=== PATIENT | female | born 1940 | race African-American/Black ===

== ENCOUNTER 2018-04-05 20:22 | Inpatient (IN) | payer MEDICARE ==
[~2018-04-05 20:22] MED LIST: ISOVUE-370 76%-LOCM 1 ML ONE
[2018-04-05 20:38] LABS: Analyzer IN Cardio ER; Base Excess (BEa) 8.5 mEq/L (-2.0 to +3.0); Calcium, Ionized 1.25 mmol/L (1.12-1.30); Carboxyhemoglobin (COHb) 1.6 gm% (0.0-3.0); Hemoglobin (Hb) 16.3 g/dL (12.0-16.0); O2 Tension (PaO2) 84.6 mmHg (> 70.0); Potassium - ABG Lab 3.63 mmol/L (3.70-5.30)
[2018-04-05] MEDS ORDERED: KETAMINE 100 MG/ML (5ML VIAL) ONE (20:43)
[2018-04-05] MEDS ORDERED: Sodium Bicarb 50 MEQ/50 ML Abboject 8.4% SYRINGE ONE (20:44)
[2018-04-05 21:03] LABS: CO2 Tension 146.5 mmHg (35.0-45.0); Puncture Site RRA; pH, Arterial 7.11 (7.35-7.45)
[2018-04-05 21:04] LABS: ALV-art Gradient 445.275 (0-20)
--- NOTE | 2018-04-05 21:20 | RAD ---
PORTABLE SUPINE CHEST: 04/05/18 HISTORY: Post intubation. Heart size is enlarged with postop sternotomy change. Left lung is now much better aerated than the p rior examination suggesting changes were probably related to mucus plugging. Endotracheal tube is in satisfactory position. Persistent bibasilar lung changes are probably related to atelectasis. IMPRESSION: 1. Definite improvement to the aeration of the left lung. 2. Endotracheal tube in satisfactory position. POS: [facility]
[2018-04-05] MEDS ORDERED: Propofol 1,000 MG/100 ML VIAL IV ONE (21:59)
[2018-04-05] MEDS ORDERED: Acetaminophen 325 MG TAB PO PRN (22:16)
[2018-04-05] MEDS ORDERED: Lactated Ringer's 1,000 ML IV SCH (22:30)
[2018-04-05 22:43] LABS: Analyzer IN Cardio ER; Base Excess (BEa) 8.8 mEq/L (-2.0 to +3.0); CO2 Tension 31.2 mmHg (35.0-45.0); Calcium, Ionized 1.15 mmol/L (1.12-1.30); Carboxyhemoglobin (COHb) 1.4 gm% (0.0-3.0); Hemoglobin (Hb) 16.3 g/dL (12.0-16.0)
[2018-04-05 22:47] LABS: O2 Tension (PaO2) 44.3 mmHg (> 70.0)
[2018-04-05 22:48] LABS: Puncture Site RRA
[2018-04-05] MEDS ORDERED: Lorazepam 2 MG/ML VIAL SLOW IVP PRN (23:36)
[2018-04-05] MEDS ORDERED: Fentanyl BOLUS 250 ML IVPB PRN (23:36)
[2018-04-05] MEDS ORDERED: Morphine 2 MG/ML SYRINGE SLOW IVP PRN (23:36)
[2018-04-05] MEDS ORDERED: Propofol BOLUS 1,000 MG/100 ML VIAL IV PRN (23:36)
--- NOTE | 2018-04-05 23:42 | CT ---
CT ANGIO OF CHEST PERFORMED WITH INTRAVENOUS CONTRAST ENHANCEMENT WITH 3D RECONSTRUCTIONS: 04/05/18 HISTORY: Shortness of breath, respiratory distress. There is right lower lobe atelectatic change present. On the left side, there is more extensive conso lidation in the left upper and lower lung gonzalez. No air bronchograms seen. I do not see any definite endobronchial mass. Changes have more of an appearance of a atelectatic process than pneumonia or tu mor. I do not appreciate any significant mediastinal or hilar adenopathy. The thoracic aorta is zacarias l in caliber. There is good pulmonary artery opacification, there is no CT evidence for pulmonary emb olus. The visualized liver parenchyma shows no focal findings. An NG tube is present. The tip of the tube is at the GE junction. An endotracheal tube is in satisfactory position. IMPRESSION: 1. No CT evidence for pulmonary embolus. 2. Opacification which appears to be related to consolidation or collapse in the left upper and left lower lung gonzalez. POS: [facility]
[2018-04-06 00:38] LABS: Actual Bicarbonate (HCO3a) 31.6 mEq/L (22-28); Base Excess (BEa) 6.9 mEq/L (-2.0 to +3.0); CO2 Tension 44.4 mmHg (35.0-45.0); Calcium, Ionized 1.19 mmol/L (1.12-1.30); Carboxyhemoglobin (COHb) 1.3 gm% (0.0-3.0); Hemoglobin (Hb) 15.8 g/dL (12.0-16.0); Potassium - ABG Lab 3.27 mmol/L (3.70-5.30); pH, Arterial 7.47 (7.35-7.45)
[2018-04-06 00:40] LABS: O2 Tension (PaO2) 58.4 mmHg (> 70.0)
[2018-04-06 00:41] LABS: Puncture Site RBRACH
[2018-04-06] MEDS: Propofol 1,000 MG/100 ML VIAL IV PRN ×4 (01:09→19:49)
--- NOTE | 2018-04-06 04:07 | HP ---
CHIEF COMPLAINT: Shortness of breath. The patient currently is intubated. I am unable to obtain a history and there is no family member around. All of the history is obtained from the ER doc and from documentation. HISTORY OF PRESENT ILLNESS: Apparently, the patient is a 78-year-old female who initially presented to the outside hospital in [facility] for complaints of shortness of breath. The patient stated that she has been having some chest congestion for the past 10 days. The patient's shortness of breath has been getting worse for the past few days, and at this time when she came into the hospital, her O2 saturations were 60% on room air. At this time, she was put on BiPAP and was transferred here for further evaluation. When the patient has arrived here, she appeared to be more somnolent. At this time, an ABG was done, which indicated a pH of 7.1. At this time, she was intubated. PAST MEDICAL HISTORY: Unable to obtain. No family members. SURGICAL HISTORY: Unable to obtain. No family members. SOCIAL HISTORY: Again, unavailable. MEDICATIONS: She did not have a list. ALLERGIES: PER NOTES INDICATES NO KNOWN DRUG ALLERGIES. REVIEW OF SYSTEMS: Unable to examine since the patient currently is intubated. PHYSICAL EXAMINATION: VITAL SIGNS: Temperature of 98.8, respirations are 18, blood pressure 140/60, she is saturating 90% on 90% FiO2. GENERAL: She is intubated. CV: S1 and S2 present. No murmurs, rubs, or gallops. LUNGS: Clear to auscultation. No rhonchi or wheezes noted. ABDOMEN: Soft and nontender. Bowel sounds are present x2. No hepatomegaly or splenomegaly noted. EXTREMITIES: No edema. Pedal pulses are present x2. NEUROVASCULAR: Per nursing staff, she was moving all her extremities. SKIN: No cuts, lesions, or bruises noted. HEENT: Normocephalic, atraumatic. No lymphadenopathy noted. LABORATORY RESULTS: As of the following; WBC of 6.6, hemoglobin of 15.8, hematocrit of 53.0, platelets of 350. Chemistry; sodium of 131, potassium of 3.8, BUN of 9, creatinine 0.67, glucose of 151. Troponin x1 is negative. BNP was 157. She did initially have a chest x-ray which indicated significant opacification of the left lung. At this time, she also had a CTA which indicated no pulmonary embolism, but opacification which appears to be related to consolidation or collapse of the left upper and left lower lung gonzalez. Animal Assisted Therapist has been notified about this per the ER doctor. ASSESSMENT AND PLAN: The patient is a very pleasant 78-year-old female who presents to the hospital with complaints of shortness of breath. 1. Acute hypercapnic/hypoxic respiratory failure. The patient currently is intubated. Her initial ABG indicated a pH of 7.11. Her repeat was 7.60. However, her pO2 was 43. At this time, settings were changed. Her FiO2 was increased and so was her PEEP. Her repeat 1 about an hour and half of pH was 7.47, pCO2 of 44.4, and pO2 of 58.4. We will start the patient on community-acquired pneumonia and we will start on Levaquin for now. She did receive vancomycin, Zosyn, and Levaquin, and also check for viral swabs. Also check a sputum for culture. She may require a bronchoscopy. An blocker heated metal forms has been notified by the ER physician. We will also start her on some steroids and some DuoNeb. 2. Mild hyponatremia. We will continue to monitor. Her antibiotics will also cover if she does have any possibility of Legionella, it will also cover that. 3. Obesity. 4. Mildly elevated BNP, may consider getting an echocardiogram. However, at this time, I think we will hold off. 5. Deep venous thrombosis prophylaxis. We will put the patient on some subcu heparin. Job ID: [id number]
[2018-04-06 05:20] LABS: Anion Gap 12 mmol/L (10-20); BUN (Urea Nitrogen) 8 mg/dL (9.8-20.1); Calc. Creatinine Clearance 151 mL/min (70-130); Calcium 9.4 mg/dL (7.8-10.44); Carbon Dioxide 34 mmol/L (23-31); Chloride 93 mmol/L (98-107); Estimated GFR-MDRD Greater than 90; Glucose 119 mg/dL (83-110); Potassium 3.2 mmol/L (3.5-5.1); Sodium 136 mmol/L (136-145)
[2018-04-06] MEDS ORDERED: Potassium Chloride 10 MEQ in Premix Bag 1 BAG IVPB SCH (06:00)
[2018-04-06 06:17] LABS: Band 7 % (5-11); Hemoglobin 15.1 g/dL (12.0-16.0); Lymphocytes 11 % (21-51); MDiff Complete? YES; Mean Corpuscular HGB CONC 31.4 g/dL (32.0-36.0); Mean Corpuscular Hemoglobin 30.5 pg (27.0-31.0); Mean Corpuscular Volume 97.4 fL (78.0-98.0); Mean Platelet Volume 7.6 fL (7.4-10.4); Monocytes 4 % (0-10); Neutrophil 78 % (42-75); PLT Morphology Comment Appears Adequate; Platelet Count 302 thou/uL (130-400); Polychromasia SLIGHT = 2-3 cells (100X) (0-2/hpf); RBC Distribution Width 14.4 % (11.5-14.5); Red Blood Cell (RBC) Count 4.94 mill/uL (4.20-5.40); White Blood Cell (WBC) Count 5.7 thou/uL (4.8-10.8)
[2018-04-06 06:56] LABS: Troponin I Less than 0.010 ng/mL (< 0.028)
[2018-04-06 08:13] LABS: Actual Bicarbonate (HCO3a) 33.3 mEq/L (22-28); Base Excess (BEa) 10.2 mEq/L (-2.0 to +3.0); CO2 Tension 38.9 mmHg (35.0-45.0); Calcium, Ionized 1.22 mmol/L (1.12-1.30); Hemoglobin (Hb) 15.8 g/dL (12.0-16.0); O2 Tension (PaO2) 80.9 mmHg (> 70.0); Potassium - ABG Lab 3.21 mmol/L (3.70-5.30); Puncture Site RBA; pH, Arterial 7.55 (7.35-7.45)
[2018-04-06 08:14] LABS: ALV-art Gradient 512.175 (0-20)
[2018-04-06] MEDS ORDERED: Midazolam HCl 2 mg/2 ml Vial ONE (08:27)
[2018-04-06] MEDS: Cefepime 1 GM in Sodium Chloride 0.9% 100 ML IVPB SCH ×2 (08:43→21:42)
[2018-04-06] MEDS: Enoxaparin Sodium 40 MG/0.4 ML SYRINGE SC SCH (08:43)
[2018-04-06] MEDS: Sodium Chloride 0.9% 1,000 ML IV SCH ×2 (08:43→19:49)
--- NOTE | 2018-04-06 10:37 | RAD ---
PORTABLE SEMIUPRIGHT FRONTAL CHEST RADIOGRAPH: Date: 04/06/18 COMPARISON: 04/05/18. HISTORY: Ventilated patient. FINDINGS: Endotracheal tube terminates at the level of the clavicles. Nasogastric tube extends into left upper quadrant. There is a dense opacity in the left base suggesting left lower lobe consolidation/collapse and/or left pleural effusion, unchanged when compared to the prior exam. There is mild increased den sity in the medial right lung base which may signify volume loss or infiltrate. IMPRESSION: Lines and tubes as above. Bibasilar opacity, left greater than right, as above. POS: [facility]
--- NOTE | 2018-04-06 11:09 | CON ---
DATE OF CONSULTATION: HISTORY OF PRESENT ILLNESS: A 78-year-old morbidly obese female, who apparently presented to an outside ER in acute respiratory distress. from spoke to him on the phone. He is on the way to the hospital. The patient was intubated in the ER. The ER physician notified me, the entire left lung was opacified for intubation. There was much more aeration of the left lung, but still appear atelectatic. states the patient does not smoke. No prior history of TB, pneumonia, or bronchial asthma. She has been a housewife. PAST MEDICAL HISTORY: Hypertension, high cholesterol, breast cancer. PAST SURGERIES: Apparently unknown, but some kind of breast surgery. She saw a doctor at the [facility] for treatment for her breast cancer. At this stage, unable to tell what was exactly transpired, but breast cancer in remission 20 years ago. HOME MEDICATIONS: 1. Coreg 12.5 twice a day. 2. Amlodipine 10. 3. Metformin 500 twice a day. 4. Accupril 20 once a day. 5. Naprosyn. 6. Cholesterol. 7. Arimidex 1 mg a day. ALLERGIES: NONE. REVIEW OF SYSTEMS: Otherwise unobtainable. PHYSICAL EXAMINATION: GENERAL: She is intubated on the vent. VITAL SIGNS: Pulse is 68, blood pressure 137/73, saturation 99%, respirations 19. CHEST: Decreased breath sounds. Extensive rhonchi left greater than right. CARDIAC: Normal S1, S2. No gallops. ABDOMEN: No masses. LABORATORY STUDIES: White count 5000, H and H is 15 and 48, platelet count is normal. PO2 was 80, pCO2 . Lytes were normal. Blood sugar was elevated. Bicarb was 34. Initial lab, blood gases showed pO2 was 84, pCO2 146, pH 7.11. Chest x-ray, left lung atelectasis. CAT scan confirmed the above findings. IMPRESSION: 1. Acute on chronic respiratory failure, marked respiratory acidosis. 2. Left lung atelectasis, pneumonia. 3. Breast cancer. 4. Diabetes. 5. Hypertension. PLAN: Diagnostic therapeutic bronchoscopy performed. Lung is still atelectatic. I discussed with the . In the meantime, continue antibiotics, neb treatment, supportive care. DVT prophylaxis. This is a 45-minute critical time excluding with bronchoscopy note below. BRONCHOSCOPY NOTE: INDICATIONS: Left lung atelectasis. DESCRIPTION OF PROCEDURE: Informed consent from the . Bite block in place. Versed 2 mg adapted on the endotracheal tube. Distal trachea showed complete obstruction of the left mainstem bronchus. This was suction lavaged numerous times for at least 15 minutes. All segments upper and lower lobe were visualized. Extensive pus was seen, which was suctioned otherwise until completely clear. After the entire left lung inspected, upper and lower lobe, no endobronchial obstruction was seen. The lateral aspect is unremarkable. Both lungs clear. IMPRESSION: Extensive left lung mucopurulent impaction. Washings were sent for Gram stain and C and S. The patient tolerated the procedure well. Job ID: [id number]
[2018-04-06] MEDS: fentaNYL Citrate/PF 2,000 MCG in Sodium Chloride 0.9% 60 ML IV SCH ×2 (11:30→21:35)
--- NOTE | 2018-04-06 13:49 | PDOC.EVN ---
Event Note - Event Note Event Note: Admitted for respiratory failure, patient now S/P Bronchoscopy that showed large mucopurulent secreations that was suctioned out. Continue intubation, nebs , IV abx. Pending cx results from bronch. Please see H and P by Dr. Haney
[2018-04-07] MEDS: Propofol 1,000 MG/100 ML VIAL IV PRN ×6 (00:04→23:09)
[2018-04-07] MEDS: Sodium Chloride 0.9% 1,000 ML IV SCH ×3 (05:11→14:08)
[2018-04-07 05:27] LABS: #Lymphocytes 0.4 thou/uL (1.20-3.40); #Monocytes 0.6 thou/uL (0.11-0.59); #Neutrophils 8.4 thou/uL (1.40-6.50); %Eosinophils 0.2 % (0.0-10.0); %Lymphocytes 4.5 % (21.0-51.0); %Monocytes 6.7 % (0.0-10.0); %Neutrophils 88.6 % (42.0-75.0); Hemoglobin 14.6 g/dL (12.0-16.0); Mean Corpuscular HGB CONC 30.6 g/dL (32.0-36.0); Mean Corpuscular Hemoglobin 29.7 pg (27.0-31.0); Mean Corpuscular Volume 97.1 fL (78.0-98.0); Mean Platelet Volume 7.8 fL (7.4-10.4); Platelet Count 324 thou/uL (130-400); RBC Distribution Width 14.6 % (11.5-14.5); Red Blood Cell (RBC) Count 4.92 mill/uL (4.20-5.40); White Blood Cell (WBC) Count 9.4 thou/uL (4.8-10.8)
[2018-04-07 05:37] LABS: Anion Gap 13 mmol/L (10-20); BUN (Urea Nitrogen) 7 mg/dL (9.8-20.1); Calc. Creatinine Clearance 156 mL/min (70-130); Calcium 9.5 mg/dL (7.8-10.44); Carbon Dioxide 32 mmol/L (23-31); Chloride 102 mmol/L (98-107); Estimated GFR-MDRD Greater than 90; Glucose 125 mg/dL (83-110); Potassium 3.2 mmol/L (3.5-5.1); Sodium 144 mmol/L (136-145)
[2018-04-07 07:24] LABS: Actual Bicarbonate (HCO3a) 33.3 mEq/L (22-28); Base Excess (BEa) 7.3 mEq/L (-2.0 to +3.0); CO2 Tension 51.8 mmHg (35.0-45.0); Calcium, Ionized 1.24 mmol/L (1.12-1.30); Carboxyhemoglobin (COHb) 1.2 gm% (0.0-3.0); Hemoglobin (Hb) 15.6 g/dL (12.0-16.0); O2 Tension (PaO2) 86.1 mmHg (> 70.0); pH, Arterial 7.43 (7.35-7.45)
[2018-04-07 07:26] LABS: Puncture Site RRA
[2018-04-07] MEDS: Cefepime 1 GM in Sodium Chloride 0.9% 100 ML IVPB SCH ×2 (08:47→20:35)
[2018-04-07] MEDS: fentaNYL Citrate/PF 2,000 MCG in Sodium Chloride 0.9% 60 ML IV SCH ×2 (08:47→17:41)
[2018-04-07] MEDS: Enoxaparin Sodium 40 MG/0.4 ML SYRINGE SC SCH (08:47)
--- NOTE | 2018-04-07 09:40 | RAD ---
SEMIUPRIGHT FRONTAL CHEST RADIOGRAPH: Date: 04/07/18 COMPARISON: 04/06/18. HISTORY: Ventilated patient. FINDINGS: Stable endotracheal tube, nasogastric tube, and midline sternotomy wires. Right lung appears clear. T here is dense opacity in the left base suggesting left lower lobe consolidation/collapse, and/or left pleural effusion, stable. IMPRESSION: No significant interval change. POS: [facility]
--- NOTE | 2018-04-07 12:22 | PDOC.PN ---
- Subjective Encounter Start Date: 04/07/18 Encounter Start Time: 12:21 Subjective: Intubated - Objective Resuscitation Status - Order Detail: 04/05/18 22:16 Resuscitation Status Routine Resuscitation Status: FULL: Full Resuscitation MAR Reviewed: Yes Vital Signs & Weight: Vital Signs (12 hours) Temp Pulse Resp Pulse Ox 04/07/18 10:38 56 L 04/07/18 10:00 10 L 04/07/18 08:00 97.9 F 10 L 100 04/07/18 07:15 58 L 04/07/18 06:00 10 L 04/07/18 04:00 98.1 F 10 L 04/07/18 02:06 57 L 04/07/18 02:05 58 L 10 L 100 04/07/18 02:00 10 L Weight Admit Weight 271 lb Weight 271 lb 13.279 oz Most Recent Monitor Data Heart Rate from ECG 57 NIBP 148/65 NIBP BP-Mean 92 Respiration from ECG 10 SpO2 98 I&O: 04/06/18 04/07/18 04/08/18 06:59 06:59 06:59 Intake Total 743 2737 Output Total 1075 3015 155 Balance -332 -278 -155 Result Diagrams: 04/07/18 03:45 04/07/18 03:45 Phys Exam - Physical Examination Intubated and sedated Respiratory: no wheezing, no rales intubated Cardiovascular: RRR, no significant murmur Gastrointestinal: soft, non-tender, no distention Musculoskeletal: no edema, edema present sedtaed Dx/Plan (1) Acute respiratory failure Code(s): J96.00 - ACUTE RESPIRATORY FAILURE, UNSP W HYPOXIA OR HYPERCAPNIA Status: Acute Qualifiers: Respiratory failure complication: hypoxia and hypercapnia Qualified Code(s) : J96.01 - Acute respiratory failure with hypoxia; J96.02 - Acute respiratory failure with hypercapnia (2) Pleural effusion Code(s): J90 - PLEURAL EFFUSION, NOT ELSEWHERE CLASSIFIED Status: Acute Comment: see above (3) Consolidation of left lower lobe of lung Code(s): J18.1 - LOBAR PNEUMONIA, UNSPECIFIED ORGANISM Status: Acute Comment : see above (4) Hypertension Code(s): I10 - ESSENTIAL (PRIMARY) HYPERTENSION Status: Acute Qualifiers: Hypertension type: essential hypertension Qualified Code(s): I10 - Essential (primary) hypertension Comment: trend BP and meds as required - Plan cont current plan of care, DVT proph w/lovenox, DVT proph w/SCDs * .
--- NOTE | 2018-04-07 12:56 | PRG ---
DATE OF SERVICE: 04/07/2018 SERVICE: Pulmonary Medicine. INTERVAL HISTORY: The patient is doing okay from respiratory standpoint. Whenever she gets a sedation holiday, she wakes up very agitated, climbs down the tube, and then desaturates. Every time, we try to minimize the sedation to see if she will tolerate a spontaneous breathing trial, she wakes up so abruptly that we cannot get her on a CPAP trial. Otherwise, there has been no interval change to her condition. PHYSICAL EXAMINATION: VITAL SIGNS: Afebrile, pulse 56, blood pressure 148/65, respirations 10, and saturation 98% on 31% FiO2 and a PEEP of 5. GENERAL: The patient is intubated and sedated. HEENT: Normocephalic and atraumatic. Sclerae white. Conjunctivae pink. Oral mucosa is moist without lesions. LUNGS: Excellent air entry. Rhonchi are present. No prolonged expiratory phase or wheezing is appreciated. HEART: Normal rate and regular. ABDOMEN: Soft, nontender, and nondistended. Bowel sounds are positive. MUSCULOSKELETAL: No cyanosis or clubbing. There is no pitting in the bilateral lower extremities. NEUROLOGIC: Grossly nonfocal. LABORATORY DATA: WBC 9.4, hemoglobin 14.6, platelets 324,000. PH 7.43, pCO2 of 52, pO2 of 86. Basic metabolic profile is otherwise unremarkable. Sodium 144, potassium 3.2. Basic metabolic profile is otherwise unremarkable. Influenza A and B are unremarkable. Respiratory virus panel is negative. Respiratory culture demonstrates moderate white blood cells, but no organisms with normal maude present ultimately. IMAGIN. Chest x-ray today demonstrates left-sided pleural-parenchymal opacification is noted, I cannot exclude a left-sided effusion. Endotracheal tube terminates in good position, roughly 3 cm above the level of the keegan. There is an enteric catheter coursing midline below the level of the diaphragm and out of the field of view. 2. CTA of the chest demonstrates densely consolidated left lung including segments of the left lower lobe and left upper lobe. The right lung is relatively spared. ASSESSMENT: 1. Acute hypoxic respiratory failure. 2. Community-acquired pneumonia. 3. Breast cancer. DISCUSSION AND PLAN: We will initiate Klonopin and Seroquel overnight. We will repeat a sedation holiday, spontaneous breathing trial tomorrow morning. At this point, her mentation precludes a spontaneous breathing trial to assess whether or not her lungs are ready for extubation. Pulmonary Critical Care will continue to follow while the patient remains in this location. I will replace her potassium today, and minimize her IV fluids. Critical care time: 30 minutes. Job ID: [id number] MTDD
[2018-04-07] MEDS: clonazePAM 1 MG TAB PO SCH (20:35)
[2018-04-08] MEDS: Sodium Chloride 0.9% 1,000 ML IV SCH ×2 (02:27→18:25)
[2018-04-08] MEDS: Propofol 1,000 MG/100 ML VIAL IV PRN ×3 (03:36→23:03)
[2018-04-08] MEDS: fentaNYL Citrate/PF 2,000 MCG in Sodium Chloride 0.9% 60 ML IV SCH ×2 (03:38→16:20)
[2018-04-08 06:23] LABS: Anion Gap 11 mmol/L (10-20); BUN (Urea Nitrogen) 7 mg/dL (9.8-20.1); Calc. Creatinine Clearance 172 mL/min (70-130); Calcium 9.1 mg/dL (7.8-10.44); Carbon Dioxide 30 mmol/L (23-31); Chloride 106 mmol/L (98-107); Estimated GFR-MDRD Greater than 90; Glucose 108 mg/dL (83-110); Potassium 3.7 mmol/L (3.5-5.1); Sodium 143 mmol/L (136-145)
[2018-04-08 06:34] LABS: #Lymphocytes 0.8 thou/uL (1.20-3.40); %Basophils 0.1 % (0.0-1.0); %Lymphocytes 10.6 % (21.0-51.0); %Monocytes 13.1 % (0.0-10.0); %Neutrophils 76.2 % (42.0-75.0); Anisocytosis SLIGHT = 6-15 cells (100X) (0-5/hpf); Hemoglobin 14.7 g/dL (12.0-16.0); MDiff Complete? YES; Mean Corpuscular Hemoglobin 30.4 pg (27.0-31.0); Mean Platelet Volume 7.4 fL (7.4-10.4); Platelet Count 325 thou/uL (130-400); RBC Distribution Width 14.7 % (11.5-14.5); Red Blood Cell (RBC) Count 4.86 mill/uL (4.20-5.40); White Blood Cell (WBC) Count 7.8 thou/uL (4.8-10.8)
[2018-04-08 07:10] LABS: Actual Bicarbonate (HCO3a) 26.6 mEq/L (22-28); Base Excess (BEa) 1.7 mEq/L (-2.0 to +3.0); Calcium, Ionized 1.28 mmol/L (1.12-1.30); Carboxyhemoglobin (COHb) 1.5 gm% (0.0-3.0); Hemoglobin (Hb) 15.6 g/dL (12.0-16.0); O2 Tension (PaO2) 63.8 mmHg (> 70.0); Potassium - ABG Lab 3.78 mmol/L (3.70-5.30); pH, Arterial 7.41 (7.35-7.45)
[2018-04-08 07:11] LABS: Puncture Site RRA
[2018-04-08] MEDS: Cefepime 1 GM in Sodium Chloride 0.9% 100 ML IVPB SCH ×2 (08:04→21:26)
[2018-04-08] MEDS: Enoxaparin Sodium 40 MG/0.4 ML SYRINGE SC SCH (08:05)
[2018-04-08] MEDS: clonazePAM 1 MG TAB PO SCH ×2 (08:05→21:29)
--- NOTE | 2018-04-08 08:18 | RAD ---
PORTABLE CHEST 1 VIEW: Date: 04/08/18 Time: 0537 hours HISTORY: Respiratory failure. FINDINGS/IMPRESSION: There has been interval development of mild infiltrate at the right lung base since the previous day' s exam. The remainder of exam is otherwise stable. POS: [facility]
[2018-04-08] MEDS ORDERED: Pancrelipase DR 12000 1 CAP FS PRN (10:57)
[2018-04-08] MEDS ORDERED: Sodium Bicarbonate Tab 325 MG TAB PER TUBE PRN (10:57)
--- NOTE | 2018-04-08 11:38 | PDOC.PN ---
- Subjective Encounter Start Date: 04/08/18 Encounter Start Time: 11:35 Subjective: intubated, sedated - Objective Resuscitation Status - Order Detail: 04/05/18 22:16 Resuscitation Status Routine Resuscitation Status: FULL: Full Resuscitation MAR Reviewed: Yes Vital Signs & Weight: Vital Signs (12 hours) Temp Pulse Resp BP Pulse Ox 04/08/18 10:06 52 L 147/74 H 04/08/18 10:05 52 L 10 L 98 04/08/18 10:00 10 L 04/08/18 08:00 98.5 F 10 L 97 04/08/18 06:51 53 L 10 L 94 L 04/08/18 06:50 53 L 140/70 04/08/18 06:00 10 L 04/08/18 04:00 10 L 04/08/18 03:00 98.5 F 04/08/18 02:27 52 L 138/63 04/08/18 02:00 10 L 04/08/18 00:00 10 L Weight Admit Weight 271 lb Weight 273 lb 13.026 oz Most Recent Monitor Data Heart Rate from ECG 55 NIBP 147/74 NIBP BP-Mean 98 Respiration from ECG 6 SpO2 98 I&O: 04/07/18 04/08/18 04/09/18 06:59 06:59 06:59 Intake Total 2737 2821.5 Output Total 3015 1550 85 Balance -278 1271.5 -85 Result Diagrams: 04/08/18 05:39 04/08/18 05:39 Phys Exam - Physical Examination HEENT: PERRLA, moist MMs, sclera anicteric, TM's clear, oral pharynx no lesions , 2+ tonsils + Intubation Neck: no nodes, no JVD, supple, full ROM Respiratory: no wheezing, no rales +intubation Cardiovascular: RRR, no significant murmur Gastrointestinal: soft, non-tender, no distention Musculoskeletal: edema present sedated Dx/Plan (1) Acute respiratory failure Code(s): J96.00 - ACUTE RESPIRATORY FAILURE, UNSP W HYPOXIA OR HYPERCAPNIA Status: Acute Qualifiers: Respiratory failure complication: hypoxia and hypercapnia Qualified Code(s) : J96.01 - Acute respiratory failure with hypoxia; J96.02 - Acute respiratory failure with hypercapnia (2) Pleural effusion Code(s): J90 - PLEURAL EFFUSION, NOT ELSEWHERE CLASSIFIED Status: Acute Comment: see above (3) Consolidation of left lower lobe of lung Code(s): J18.1 - LOBAR PNEUMONIA, UNSPECIFIED ORGANISM Status: Acute Comment : see above (4) Hypertension Code(s): I10 - ESSENTIAL (PRIMARY) HYPERTENSION Status: Acute Qualifiers: Hypertension type: essential hypertension Qualified Code(s): I10 - Essential (primary) hypertension Comment: trend BP and meds as required - Plan cont current plan of care, continue antibiotics, respiratory therapy, DVT proph w/lovenox, DVT proph w/SCDs * .
--- NOTE | 2018-04-08 17:26 | PRG ---
DATE OF SERVICE: 04/08/2018 OBJECTIVE: VITAL SIGNS: Ms. Varma'opal heart rate 54, blood pressure 146/74, respiratory rate 10, oximetry is 100% mechanically ventilated. LUNGS: Clear. HEART: Regular rhythm. S1 and S2 are normal. ABDOMEN: Soft without guarding. EXTREMITIES: Without edema. LABORATORY STUDIES: 1. White count 7.8, hemoglobin 14.7, platelets 325. Electrolytes are normal. BUN 7, creatinine 0.53. Chest radiograph has been reviewed, still hazy at her left base. CT of her chest was reviewed showing consolidation of both lobes on the left, patchy fashion. 2. No thromboembolic disease was seen. IMPRESSION: 1. Acute respiratory failure. PH today 7.41, CO2 of 43, pO2 of 63. 2. Ventilator settings include rate of 10, FiO2 of 37%, tidal volume of 470, pressure support of 10, 5 of PEEP. 3. We will continue mechanical ventilation. 4. For community-acquired pneumonia with acute hypoxic respiratory failure, other problems include breast cancer. At this point in time, I doubt her pneumonia is secondary to endobronchial metastatic disease, but it remains in the differential. We will continue with supportive care. Job ID: [id number]
[2018-04-09 04:18] LABS: #Eosinphils 0.1 thou/uL (0.0-0.7); #Monocytes 0.8 thou/uL (0.11-0.59); #Neutrophils 4.1 thou/uL (1.40-6.50); %Basophils 0.2 % (0.0-1.0); %Eosinophils 1.1 % (0.0-10.0); %Lymphocytes 16.1 % (21.0-51.0); %Monocytes 13.3 % (0.0-10.0); %Neutrophils 69.4 % (42.0-75.0); Hemoglobin 14.6 g/dL (12.0-16.0); Mean Corpuscular HGB CONC 30.9 g/dL (32.0-36.0); Mean Corpuscular Hemoglobin 30.6 pg (27.0-31.0); Mean Corpuscular Volume 99.2 fL (78.0-98.0); Mean Platelet Volume 7.4 fL (7.4-10.4); Platelet Count 289 thou/uL (130-400); RBC Distribution Width 14.8 % (11.5-14.5); Red Blood Cell (RBC) Count 4.76 mill/uL (4.20-5.40); White Blood Cell (WBC) Count 5.9 thou/uL (4.8-10.8)
[2018-04-09 04:31] LABS: Anion Gap 11 mmol/L (10-20); BUN (Urea Nitrogen) 10 mg/dL (9.8-20.1); Calc. Creatinine Clearance 162 mL/min (70-130); Calcium 9.2 mg/dL (7.8-10.44); Carbon Dioxide 30 mmol/L (23-31); Chloride 107 mmol/L (98-107); Estimated GFR-MDRD Greater than 90; Glucose 103 mg/dL (83-110); Potassium 3.5 mmol/L (3.5-5.1); Sodium 144 mmol/L (136-145)
[2018-04-09] MEDS: Propofol 1,000 MG/100 ML VIAL IV PRN ×3 (04:50→19:48)
[2018-04-09] MEDS: Sodium Chloride 0.9% 1,000 ML IV SCH (04:51)
[2018-04-09 06:58] LABS: Base Excess (BEa) 2.9 mEq/L (-2.0 to +3.0); CO2 Tension 49.8 mmHg (35.0-45.0); Carboxyhemoglobin (COHb) 1.5 gm% (0.0-3.0); Hemoglobin (Hb) 15.3 g/dL (12.0-16.0); O2 Tension (PaO2) 71.4 mmHg (> 70.0); Potassium - ABG Lab 3.65 mmol/L (3.70-5.30); pH, Arterial 7.38 (7.35-7.45)
[2018-04-09 07:12] LABS: Puncture Site LRA
[2018-04-09] MEDS: Cefepime 1 GM in Sodium Chloride 0.9% 100 ML IVPB SCH ×2 (08:32→20:12)
--- NOTE | 2018-04-09 08:34 | RAD ---
CHEST ONE VIEW PORTABLE: History: 78-year-old female with history of respiratory insufficiency. Comparison: 04-08-18 FINDINGS: Monitor leads overlie the chest. NG tube and endotracheal tubes remain in place. There is some cardio megaly with left sided pleural and parenchymal opacity changes in the mid and lower chest and some ri ght lower lobe parenchymal changes along with bilateral vascular congestion. IMPRESSION: Abnormal pleural and parenchymal opacity changes in the left chest with parenchymal changes in the ri ght lower lobe and bilateral vascular congestion showing little change from prior study of 04-08-18 w hich showed definite worsening compared to the 04-07-18 study. Continued short term follow up. POS: [facility]
[2018-04-09] MEDS: clonazePAM 1 MG TAB PO SCH ×2 (08:39→19:55)
[2018-04-09] MEDS: Enoxaparin Sodium 40 MG/0.4 ML SYRINGE SC SCH (08:40)
--- NOTE | 2018-04-09 11:25 | PDOC.PN ---
- Subjective Encounter Start Date: 04/09/18 Encounter Start Time: 11:15 -: non-verbal Subjective: Intubated and sedated - Objective Resuscitation Status - Order Detail: 04/05/18 22:16 Resuscitation Status Routine Resuscitation Status: FULL: Full Resuscitation MAR Reviewed: Yes Vital Signs & Weight: Vital Signs (12 hours) Temp Pulse Resp BP Pulse Ox 04/09/18 10:57 61 112/77 04/09/18 10:55 61 10 L 96 04/09/18 10:00 10 L 04/09/18 08:00 98.2 F 10 L 04/09/18 06:42 59 L 96/55 L 04/09/18 06:39 57 L 10 L 99 04/09/18 06:00 10 L 04/09/18 04:00 98.3 F 12 04/09/18 02:16 68 112/67 04/09/18 02:00 10 L 04/09/18 00:00 98.0 F 10 L Weight Admit Weight 271 lb Weight 281 lb 1.43 oz Most Recent Monitor Data Heart Rate from ECG 61 NIBP 130/62 NIBP BP-Mean 84 Respiration from ECG 10 SpO2 98 I&O: 04/08/18 04/09/18 04/10/18 06:59 06:59 06:59 Intake Total 2821.5 2634 Output Total 1550 1100 185 Balance 1271.5 1534 -185 Result Diagrams: 04/09/18 04:05 04/09/18 04:05 Phys Exam - Physical Examination Constitutional: NAD HEENT: moist MMs pupils sluggish and equal on sedation Coarse breath sounds bilaterally on the vent Cardiovascular: RRR Gastrointestinal: soft, positive bowel sounds Obese Musculoskeletal: no edema Neurological: non-focal Deviation from normal: sedated, unresponsive Dx/Plan (1) Community acquired bacterial pneumonia Code(s): J15.9 - UNSPECIFIED BACTERIAL PNEUMONIA Status: Acute Comment: On vent, IV antibiotics, Left Lower Lung consolidation (2) Acute respiratory failure Code(s): J96.00 - ACUTE RESPIRATORY FAILURE, UNSP W HYPOXIA OR HYPERCAPNIA Status: Acute Qualifiers: Respiratory failure complication: hypoxia and hypercapnia Qualified Code(s) : J96.01 - Acute respiratory failure with hypoxia; J96.02 - Acute respiratory failure with hypercapnia Comment: Requiring intubation. CT chest showing left lower lung consolidation vs. collapse with pleural effusion. S/P Bronch as aspiration of large amount of pus. Cx from the aspirate showing only normal resp maude. Continue abx Cefepime and levaquin (3) Hypertension Code(s): I10 - ESSENTIAL (PRIMARY) HYPERTENSION Status: Acute Qualifiers: Hypertension type: essential hypertension Qualified Code(s): I10 - Essential (primary) hypertension Comment: trend BP and meds as required - Plan cont current plan of care, continue antibiotics, respiratory therapy, DVT proph w/lovenox * . - Discharge Day Encounter end time: 11:25
--- NOTE | 2018-04-09 13:08 | PRG ---
DATE OF SERVICE: 04/09/2018 SERVICE: Pulmonary Medicine. INTERVAL HISTORY: The patient is doing okay from respiratory standpoint. Breathing comfortably. That being said, whenever we minimized the sedation, she wakes up wild, and does not follow any commands. I am not convinced that she will be able to cough all the secretions that she has up and protect her airway. As such, extubation cannot be considered currently. There has been no interval change to her condition, however. PHYSICAL EXAMINATION: VITAL SIGNS: Afebrile, pulse 93, blood pressure 134/69, respirations 14, saturation 92% on 23% FiO2 and a PEEP of 5. GENERAL: The patient is intubated and sedated. HEENT: Normocephalic and atraumatic. Sclerae are white. Conjunctivae are pink. Oral mucosa is moist without lesions. LUNGS: Excellent air entry. Rhonchi are present. No prolonged expiratory phase are noted. HEART: Normal rate and regular. ABDOMEN: Soft, nontender, and nondistended. Bowel sounds are positive. MUSCULOSKELETAL: No cyanosis or clubbing. There is no pitting in the bilateral lower extremities. NEUROLOGIC: Grossly nonfocal. LABORATORY DATA: WBC 5.9, hemoglobin 14.6, and platelets 289,000. PH 7.38, pCO2 50, PO2 71. Basic metabolic profile is essentially unremarkable. Potassium 3.5. Influenza A and B and respiratory virus panel are unremarkable. Respiratory culture has a few normal respiratory maude present. No organisms were otherwise identified. IMAGING DATA: Chest x-ray demonstrates left lung infiltrate. Endotracheal tube remains in good position roughly 4 cm above the level of the keegan. ASSESSMENT: 1. Acute hypoxic respiratory failure, resolving. 2. Community-acquired pneumonia. 3. Metabolic encephalopathy. 4. History of breast cancer. DISCUSSION AND PLAN: We will continue the Seroquel and Klonopin. I will initiate some Precedex to see whether or not we can liberate her from the propofol and fentanyl. Hopefully, once her mentation allows, she will likely be a good candidate for extubation. At this point, I have seen her moving all 4 extremities. She has a vigorous cough, but whenever we weaned the sedation, she simply clamps down the endotracheal tube, and does not following any commands. As such, it is not safe to extubate her at this moment. Potassium will be replaced today, and IV fluids will be interrupted as she is tolerating her tube feeds. Critical care time: 30 minutes. Job ID: [id number] MTDD
[2018-04-10 04:54] LABS: Anion Gap 9 mmol/L (10-20); BUN (Urea Nitrogen) 11 mg/dL (9.8-20.1); Calc. Creatinine Clearance 172 mL/min (70-130); Calcium 9.5 mg/dL (7.8-10.44); Carbon Dioxide 31 mmol/L (23-31); Chloride 105 mmol/L (98-107); Estimated GFR-MDRD Greater than 90; Glucose 126 mg/dL (83-110); Potassium 3.5 mmol/L (3.5-5.1); Sodium 141 mmol/L (136-145)
[2018-04-10] MEDS: Propofol 1,000 MG/100 ML VIAL IV PRN (05:08)
[2018-04-10 05:33] LABS: #Eosinphils 0.1 thou/uL (0.0-0.7); #Monocytes 0.7 thou/uL (0.11-0.59); #Neutrophils 5.2 thou/uL (1.40-6.50); %Basophils 0.2 % (0.0-1.0); %Lymphocytes 13.9 % (21.0-51.0); %Monocytes 10.4 % (0.0-10.0); %Neutrophils 74.5 % (42.0-75.0); Anisocytosis SLIGHT = 6-15 cells (100X) (0-5/hpf); Hemoglobin 14.7 g/dL (12.0-16.0); MDiff Complete? YES; Mean Corpuscular HGB CONC 30.9 g/dL (32.0-36.0); Mean Corpuscular Hemoglobin 30.4 pg (27.0-31.0); Mean Corpuscular Volume 98.6 fL (78.0-98.0); Mean Platelet Volume 7.4 fL (7.4-10.4); Platelet Count 284 thou/uL (130-400); RBC Distribution Width 14.9 % (11.5-14.5); Red Blood Cell (RBC) Count 4.84 mill/uL (4.20-5.40)
[2018-04-10 07:16] LABS: Actual Bicarbonate (HCO3a) 31.4 mEq/L (22-28); Calcium, Ionized 1.26 mmol/L (1.12-1.30); Carboxyhemoglobin (COHb) 1.8 gm% (0.0-3.0); Hemoglobin (Hb) 15.5 g/dL (12.0-16.0); O2 Tension (PaO2) 64.4 mmHg (> 70.0); Potassium - ABG Lab 3.85 mmol/L (3.70-5.30); pH, Arterial 7.39 (7.35-7.45)
[2018-04-10 07:18] LABS: Puncture Site LR
--- NOTE | 2018-04-10 08:39 | PRG ---
DATE OF SERVICE: 04/10/2018 SUBJECTIVE: This morning she is intubated in the vent. She is on Precedex and propofol. Still remains agitated. OBJECTIVE: VITAL SIGNS: Blood pressure is 133/59, sats are 100%, respirations are 18, pulse 67. She is afebrile. All cultures so far negative. CHEST: Decreased breath sounds. Bilateral rhonchi. CARDIAC: Normal S1 and S2. No gallops or masses. LABORATORY DATA: PO2 of 64, pCO2 of 43 ph 7.37. White count 7000, H and H 14 and 47, platelet count normal. IMPRESSION: 1. Left lung pneumonia. 2. Obesity. 3. Severe deconditioning. PLAN: 1. She is clearly not weanable at this stage. I am going to proceed with another bronchoscopy. Continue antibiotics, neb treatments, steroids. 2. We will follow. One-half hour critical time. Job ID: [id number] MTDD
[2018-04-10] MEDS: clonazePAM 1 MG TAB PO SCH ×2 (08:46→20:14)
[2018-04-10] MEDS: Cefepime 1 GM in Sodium Chloride 0.9% 100 ML IVPB SCH ×2 (08:46→20:14)
[2018-04-10] MEDS: Enoxaparin Sodium 40 MG/0.4 ML SYRINGE SC SCH (08:46)
--- NOTE | 2018-04-10 09:05 | PDOC.PN ---
- Subjective Encounter Start Date: 04/10/18 Encounter Start Time: 09:00 -: non-verbal Subjective: Patient still unweanable on the vent - Objective Resuscitation Status - Order Detail: 04/05/18 22:16 Resuscitation Status Routine Resuscitation Status: FULL: Full Resuscitation MAR Reviewed: Yes Vital Signs & Weight: Vital Signs (12 hours) Temp Pulse Resp BP Pulse Ox 04/10/18 06:37 67 123/62 04/10/18 06:32 62 11 L 99 04/10/18 04:00 97.8 F 12 04/10/18 02:11 65 121/68 04/10/18 02:00 12 04/10/18 01:00 97.7 F 100 04/10/18 00:00 10 L 04/09/18 23:54 56 L 165/85 H 04/09/18 22:08 48 L 144/75 H 04/09/18 22:00 97.8 F 10 L Weight Admit Weight 271 lb Weight 274 lb 14.663 oz Most Recent Monitor Data Heart Rate from ECG 61 NIBP 133/59 NIBP BP-Mean 83 Respiration from ECG 15 SpO2 100 I&O: 04/09/18 04/10/18 04/11/18 06:59 06:59 06:59 Intake Total 2634 2051.1 Output Total 1100 1375 Balance 1534 676.1 Result Diagrams: 04/10/18 04:22 04/10/18 04:22 Phys Exam - Physical Examination HEENT: moist MMs Respiratory: no wheezing, no rales, no rhonchi Cardiovascular: RRR Gastrointestinal: soft, non-tender, positive bowel sounds Neurological: non-focal Deviation from normal: sedated and ventilated Dx/Plan (1) Community acquired bacterial pneumonia Code(s): J15.9 - UNSPECIFIED BACTERIAL PNEUMONIA Status: Acute Comment: On vent, IV antibiotics, Left Lower Lung consolidation (2) Acute respiratory failure Code(s): J96.00 - ACUTE RESPIRATORY FAILURE, UNSP W HYPOXIA OR HYPERCAPNIA Status: Acute Qualifiers: Respiratory failure complication: hypoxia and hypercapnia Qualified Code(s) : J96.01 - Acute respiratory failure with hypoxia; J96.02 - Acute respiratory failure with hypercapnia Comment: Requiring intubation. CT chest showing left lower lung consolidation vs. collapse with pleural effusion. S/P Bronch as aspiration of large amount of pus. Cx from the aspirate showing only normal resp maude. Continue abx Cefepime and levaquin (3) Hypertension Code(s): I10 - ESSENTIAL (PRIMARY) HYPERTENSION Status: Acute Qualifiers: Hypertension type: essential hypertension Qualified Code(s): I10 - Essential (primary) hypertension Comment: trend BP and meds as required - Plan cont current plan of care, continue antibiotics, respiratory therapy, DVT proph w/lovenox Adding Reglan and Pepcid. Patient still with high residuals on tube feeds. * . - Discharge Day Encounter end time: 09:15
[2018-04-10] MEDS: Metoclopramide HCl 10 MG/2 ML VIAL IVP SCH ×2 (13:12→21:21)
--- NOTE | 2018-04-10 19:49 | OP ---
DATE OF PROCEDURE: PROCEDURE: Bronchoscopy, therapeutic. INDICATION: Persistent secretion, left lung atelectasis respitory failure DESCRIPTION OF PROCEDURE: After informed consent from the , a flexible bronchoscope was passed _using addapterto endotracheal tube. Distal trachea was visualized, which was normal. Elsy was sharp. The left lung had distal marked edema and secretions with pus in the basilar section, lavaged until clear. No endobronchial disease was seen. The right lung was inspected. The right upper and right middle lobe were unremarkable. No endobronchial obstruction was seen. Both lungs were relavaged with saline till clear. The patient otherwise tolerated the procedure well. Job ID: [id number] [facility]
[2018-04-10] MEDS: Famotidine 20 MG TAB PER TUBE SCH (20:14)
[2018-04-11] MEDS: Metoclopramide HCl 10 MG/2 ML VIAL IVP SCH ×3 (05:02→22:22)
[2018-04-11 05:52] LABS: #Eosinphils 0.1 thou/uL (0.0-0.7); #Lymphocytes 0.7 thou/uL (1.20-3.40); #Monocytes 0.8 thou/uL (0.11-0.59); #Neutrophils 6.8 thou/uL (1.40-6.50); %Basophils 0.2 % (0.0-1.0); %Lymphocytes 8.7 % (21.0-51.0); %Monocytes 9.1 % (0.0-10.0); Hemoglobin 15.7 g/dL (12.0-16.0); Mean Corpuscular HGB CONC 33.2 g/dL (32.0-36.0); Mean Corpuscular Hemoglobin 32.4 pg (27.0-31.0); Mean Corpuscular Volume 97.5 fL (78.0-98.0); Mean Platelet Volume 7.7 fL (7.4-10.4); Platelet Count 284 thou/uL (130-400); RBC Distribution Width 14.4 % (11.5-14.5); Red Blood Cell (RBC) Count 4.86 mill/uL (4.20-5.40); White Blood Cell (WBC) Count 8.4 thou/uL (4.8-10.8)
[2018-04-11 05:57] LABS: Anion Gap 10 mmol/L (10-20); BUN (Urea Nitrogen) 8 mg/dL (9.8-20.1); Calc. Creatinine Clearance 188 mL/min (70-130); Calcium 9.9 mg/dL (7.8-10.44); Carbon Dioxide 33 mmol/L (23-31); Chloride 101 mmol/L (98-107); Estimated GFR-MDRD Greater than 90; Glucose 122 mg/dL (83-110); Potassium 3.9 mmol/L (3.5-5.1); Sodium 140 mmol/L (136-145)
[2018-04-11 06:58] LABS: Actual Bicarbonate (HCO3a) 32.9 mEq/L (22-28); Base Excess (BEa) 5.6 mEq/L (-2.0 to +3.0); CO2 Tension 58.1 mmHg (35.0-45.0); Calcium, Ionized 1.24 mmol/L (1.12-1.30); Carboxyhemoglobin (COHb) 1.9 gm% (0.0-3.0); Hemoglobin (Hb) 16.4 g/dL (12.0-16.0); Potassium - ABG Lab 3.74 mmol/L (3.70-5.30); pH, Arterial 7.37 (7.35-7.45)
[2018-04-11 07:05] LABS: ALV-art Gradient 189.225 (0-20); Puncture Site LRA
[2018-04-11] MEDS ORDERED: DC Sedation Protocol FS ONE (07:35)
[2018-04-11] MEDS: Famotidine 20 MG TAB PER TUBE SCH ×2 (07:49→22:22)
--- NOTE | 2018-04-11 07:54 | PRG ---
DATE OF SERVICE: 04/11/2018 SUBJECTIVE: Katie Varma, this morning awake, alert, and responsive on the vent. OBJECTIVE: VITAL SIGNS: Pulse is 80, blood pressure is 160/80, sats in the 80s. GENERAL: She remains agitated. CHEST: Decreased breath sounds. No wheezing. CARDIAC: Normal S1, S2. No gallops. ABDOMEN: Soft without any masses. NEUROLOGIC: She is awake, moves all of her extremities. LABORATORY DATA: White count is 8000, H and H are 15 and 40, platelet count is normal. PO2 is 59, pCO2 QAMARKER]. This is in the rate of 12. Lytes are normal. IMPRESSION: Respiratory failure, left lung atelectasis, morbid obesity, severe deconditioning, encephalopathy. PLAN: Consider weaning and extubation today. Supportive care, PT, Nutrition. This is one half critical care time. Job ID: [id number]
[2018-04-11] MEDS: Cefepime 1 GM in Sodium Chloride 0.9% 100 ML IVPB SCH ×2 (09:00→21:50)
[2018-04-11] MEDS: clonazePAM 1 MG TAB PO SCH ×2 (09:02→22:21)
[2018-04-11] MEDS: Enoxaparin Sodium 40 MG/0.4 ML SYRINGE SC SCH (09:03)
--- NOTE | 2018-04-11 09:36 | RAD ---
CHEST ONE VIEW: HISTORY: Ventilated patient. COMPARISON: Radiograph from 04/09/2018. FINDINGS: Interval worsening of right basilar air space opacities. Small effusions. Endotracheal tube tip in good position. Enteric tube tip below the diaphragm, although out of the fi eld of view. IMPRESSION: Interval worsening of right lower lobe air space opacities, concerning for infection/aspiration. POS: KEVIN
--- NOTE | 2018-04-11 09:45 | PDOC.PN ---
- Subjective Encounter Start Date: 04/11/18 Encounter Start Time: 09:50 Subjective: Patient extubated, on Bipap, very sleepy right now, nods head yes/ no. - Objective Resuscitation Status - Order Detail: 04/05/18 22:16 Resuscitation Status Routine Resuscitation Status: FULL: Full Resuscitation MAR Reviewed: Yes Vital Signs & Weight: Vital Signs (12 hours) Temp Pulse Resp BP Pulse Ox 04/11/18 08:00 98.5 F 04/11/18 06:28 55 L 171/77 H 04/11/18 06:22 55 L 23 H 97 04/11/18 06:00 23 H 04/11/18 04:00 19 04/11/18 03:00 99.6 F 04/11/18 02:10 54 L 04/11/18 02:00 17 04/11/18 00:25 60 24 H 97 04/11/18 00:00 19 04/10/18 23:00 98.7 F 04/10/18 22:14 52 L 157/69 H 04/10/18 22:00 18 Weight Admit Weight 271 lb Weight 278 lb 0.046 oz Most Recent Monitor Data Heart Rate from ECG 105 NIBP 128/96 NIBP BP-Mean 106 Respiration from ECG 21 SpO2 97 I&O: 04/10/18 04/11/18 04/12/18 06:59 06:59 06:59 Intake Total 2051.1 1501 130 Output Total 1375 1320 420 Balance 676.1 181 -290 Result Diagrams: 04/11/18 05:28 04/11/18 05:28 Phys Exam - Physical Examination Constitutional: NAD HEENT: moist MMs Respiratory: no wheezing, no rales, no rhonchi Cardiovascular: RRR Gastrointestinal: soft, positive bowel sounds Neurological: non-focal Deviation from normal: sleepy Dx/Plan (1) Community acquired bacterial pneumonia Code(s): J15.9 - UNSPECIFIED BACTERIAL PNEUMONIA Status: Acute Comment: On vent, IV antibiotics, Left Lower Lung consolidation (2) Acute respiratory failure Code(s): J96.00 - ACUTE RESPIRATORY FAILURE, UNSP W HYPOXIA OR HYPERCAPNIA Status: Acute Qualifiers: Respiratory failure complication: hypoxia and hypercapnia Qualified Code(s) : J96.01 - Acute respiratory failure with hypoxia; J96.02 - Acute respiratory failure with hypercapnia Comment: Requiring intubation. CT chest showing left lower lung consolidation vs. collapse with pleural effusion. S/P Bronch as aspiration of large amount of pus. Cx from the aspirate showing only normal resp maude. Continue abx Cefepime and levaquin (3) Hypertension Code(s): I10 - ESSENTIAL (PRIMARY) HYPERTENSION Status: Acute Qualifiers: Hypertension type: essential hypertension Qualified Code(s): I10 - Essential (primary) hypertension Comment: trend BP and meds as required - Plan cont current plan of care, continue antibiotics, respiratory therapy Extubated, on Bipap * . - Discharge Day Encounter end time: 10:15
[2018-04-11] MEDS: metFORMIN 500 MG TAB PO SCH (17:41)
[2018-04-11] MEDS ORDERED: Labetalol HCl 100 MG/20 ML VIAL SLOW IVP PRN (21:26)
[2018-04-11] MEDS: Anastrozole 1 MG TAB PO SCH (22:20)
[2018-04-11] MEDS: Carvedilol 6.25 MG TAB PO SCH (22:21)
[2018-04-11] MEDS: Aspirin 81 mg Enteric Coated Tablet PO SCH (22:21)
[2018-04-11] MEDS: Simvastatin 5 MG TAB PO SCH (22:22)
[2018-04-11] MEDS: Docusate 100 MG CAP PO SCH (22:22)
[2018-04-12 05:08] LABS: #Monocytes 1.2 thou/uL (0.11-0.59); #Neutrophils 8.8 thou/uL (1.40-6.50); %Basophils 0.3 % (0.0-1.0); %Eosinophils 0.3 % (0.0-10.0); %Lymphocytes 8.7 % (21.0-51.0); %Monocytes 11.1 % (0.0-10.0); %Neutrophils 79.6 % (42.0-75.0); Hemoglobin 14.9 g/dL (12.0-16.0); Mean Corpuscular HGB CONC 31.1 g/dL (32.0-36.0); Mean Corpuscular Hemoglobin 30.6 pg (27.0-31.0); Mean Corpuscular Volume 98.6 fL (78.0-98.0); Mean Platelet Volume 7.9 fL (7.4-10.4); Platelet Count 338 thou/uL (130-400); RBC Distribution Width 14.8 % (11.5-14.5); Red Blood Cell (RBC) Count 4.86 mill/uL (4.20-5.40)
[2018-04-12 05:33] LABS: Anion Gap 13 mmol/L (10-20); BUN (Urea Nitrogen) 8 mg/dL (9.8-20.1); Calc. Creatinine Clearance 170 mL/min (70-130); Calcium 10.2 mg/dL (7.8-10.44); Carbon Dioxide 34 mmol/L (23-31); Chloride 101 mmol/L (98-107); Estimated GFR-MDRD Greater than 90; Glucose 86 mg/dL (83-110); Potassium 3.6 mmol/L (3.5-5.1); Sodium 144 mmol/L (136-145)
[2018-04-12] MEDS: Metoclopramide HCl 10 MG/2 ML VIAL IVP SCH ×3 (05:39→21:11)
--- NOTE | 2018-04-12 08:11 | PDOC.PN ---
- Subjective Encounter Start Date: 04/12/18 Encounter Start Time: 09:00 Subjective: Patient awake and talking this morning. No pain. Feels like she may need -: to have a BM. No SOB. - Objective Resuscitation Status - Order Detail: 04/05/18 22:16 Resuscitation Status Routine Resuscitation Status: FULL: Full Resuscitation MAR Reviewed: Yes Vital Signs & Weight: Vital Signs (12 hours) Temp Pulse Resp BP Pulse Ox 04/12/18 07:01 95 04/12/18 06:59 102 H 28 H 04/12/18 04:00 98.0 F 04/12/18 00:29 119 H 26 H 98 04/12/18 00:00 98.2 F 04/11/18 22:23 119 H 178/80 H 04/11/18 22:22 171/77 H 04/11/18 22:21 171/77 H Weight Admit Weight 271 lb Weight 276 lb 3.827 oz Most Recent Monitor Data Heart Rate from ECG 100 NIBP 173/106 NIBP BP-Mean 128 Respiration from ECG 18 SpO2 96 I&O: 04/11/18 04/12/18 04/13/18 06:59 06:59 06:59 Intake Total 1501 802 Output Total 1320 4370 Balance 181 -3568 Result Diagrams: 04/12/18 04:20 04/12/18 04:20 Phys Exam - Physical Examination Constitutional: NAD HEENT: moist MMs Respiratory: no wheezing, no rales, no rhonchi Cardiovascular: RRR Gastrointestinal: soft, positive bowel sounds Neurological: non-focal, moves all 4 limbs Psychiatric: normal affect, A&O x 3 Dx/Plan (1) Community acquired bacterial pneumonia Code(s): J15.9 - UNSPECIFIED BACTERIAL PNEUMONIA Status: Acute Comment: IV antibiotics, Left Lower Lung consolidation (2) Acute respiratory failure Code(s): J96.00 - ACUTE RESPIRATORY FAILURE, UNSP W HYPOXIA OR HYPERCAPNIA Status: Acute Qualifiers: Respiratory failure complication: hypoxia and hypercapnia Qualified Code(s) : J96.01 - Acute respiratory failure with hypoxia; J96.02 - Acute respiratory failure with hypercapnia Comment: Requiring intubation. CT chest showing left lower lung consolidation vs. collapse with pleural effusion. S/P Bronch as aspiration of large amount of pus. Cx from the aspirate showing only normal resp maude. Continue abx Cefepime and levaquin. Successfully extubate 04/11 (3) Hypertension Code(s): I10 - ESSENTIAL (PRIMARY) HYPERTENSION Status: Acute Qualifiers: Hypertension type: essential hypertension Qualified Code(s): I10 - Essential (primary) hypertension Comment: trend BP and meds as required - Plan cont current plan of care, continue antibiotics, PT/OT, respiratory therapy * . - Discharge Day Encounter end time: 09:30
[2018-04-12] MEDS: Enoxaparin Sodium 40 MG/0.4 ML SYRINGE SC SCH (08:40)
[2018-04-12] MEDS: Cefepime 1 GM in Sodium Chloride 0.9% 100 ML IVPB SCH ×2 (08:42→20:44)
[2018-04-12] MEDS: Carvedilol 6.25 MG TAB PO SCH ×2 (10:33→20:52)
[2018-04-12] MEDS: Amlodipine 10 MG TAB PO SCH (10:37)
[2018-04-12] MEDS: metFORMIN 500 MG TAB PO SCH ×2 (10:37→16:58)
[2018-04-12] MEDS: Docusate 100 MG CAP PO SCH ×2 (10:38→20:53)
[2018-04-12] MEDS: Famotidine 20 MG TAB PER TUBE SCH ×2 (10:38→20:52)
[2018-04-12] MEDS: clonazePAM 1 MG TAB PO SCH (10:41)
--- NOTE | 2018-04-12 13:09 | PRG ---
DATE OF SERVICE: 04/12/2018 SERVICE: Pulmonary Medicine. INTERVAL HISTORY: The patient is doing fine from a respiratory standpoint. She is on 2 L nasal cannula. She denies any current chest pain, fevers, chills, nausea , or vomiting. Otherwise, she is breathing fairly comfortably with no complaints. There were no significant events overnight. OBJECTIVE: VITAL SIGNS: Afebrile with a T-max of 99.8, pulse 101, blood pressure 142/107, respirations 20, and saturation 90% on 2 L nasal cannula. GENERAL: The patient is awake and alert, in no apparent distress. LUNGS: Decent air entry. Crackles are present dependently. No prolonged expiratory phase or wheezing is appreciated. HEART: Normal rate, regular. ABDOMEN: Soft, nontender, and nondistended. Bowel sounds are positive. MUSCULOSKELETAL: No cyanosis or clubbing. There is trace pitting in bilateral lower extremities. NEUROLOGIC: Grossly nonfocal. ASSESSMENT: 1. Acute hypoxic respiratory failure, resolving. 2. Community-acquired pneumonia. 3. Metabolic encephalopathy, resolved. 4. History of breast cancer. DISCUSSION AND PLAN: I will back off on her sedating medications. Pulmonary/Critical Care will continue to follow along. From my perspective, she can be transitioned out of the ICU to the medical unit. Pulmonary/Critical Care will continue to follow. We will start mobilization efforts through time. Job ID: [id number] MTDD
--- NOTE | 2018-04-12 18:29 | EKG ---
Test Reason : RESPIRATORY DISTRESS Blood Pressure : / mmHG Vent. Rate : 069 BPM Atrial Rate : 069 BPM P-R Int : 162 ms QRS Dur : 096 ms QT Int : 406 ms P-R-T Axes : 057 041 055 degrees QTc Int : 435 ms Normal sinus rhythm Normal ECG Confirmed by MINNA HURLEY DO ([id number]), desk editor CAROLYNE BARRERA ([id number]) on 04/12/2018 6:29:08 PM Referred By: Confirmed By:MINNA HURLEY DO
[2018-04-12] MEDS: Anastrozole 1 MG TAB PO SCH (20:52)
[2018-04-12] MEDS: Aspirin 81 mg Enteric Coated Tablet PO SCH (20:52)
[2018-04-12] MEDS: Simvastatin 5 MG TAB PO SCH (20:53)
[2018-04-13] MEDS: Metoclopramide HCl 10 MG/2 ML VIAL IVP SCH ×3 (05:13→21:04)
[2018-04-13 06:32] LABS: #Eosinphils 0.1 thou/uL (0.0-0.7); #Lymphocytes 1.2 thou/uL (1.20-3.40); #Monocytes 0.9 thou/uL (0.11-0.59); #Neutrophils 5.8 thou/uL (1.40-6.50); %Basophils 0.5 % (0.0-1.0); %Eosinophils 0.8 % (0.0-10.0); %Lymphocytes 14.9 % (21.0-51.0); %Monocytes 11.7 % (0.0-10.0); %Neutrophils 72.2 % (42.0-75.0); Hemoglobin 13.5 g/dL (12.0-16.0); Mean Corpuscular HGB CONC 30.6 g/dL (32.0-36.0); Mean Corpuscular Hemoglobin 30.3 pg (27.0-31.0); Mean Corpuscular Volume 99.2 fL (78.0-98.0); Mean Platelet Volume 7.8 fL (7.4-10.4); Platelet Count 313 thou/uL (130-400); RBC Distribution Width 14.8 % (11.5-14.5); Red Blood Cell (RBC) Count 4.44 mill/uL (4.20-5.40)
[2018-04-13 06:51] LABS: Anion Gap 12 mmol/L (10-20); BUN (Urea Nitrogen) 12 mg/dL (9.8-20.1); Calc. Creatinine Clearance 170 mL/min (70-130); Calcium 10.2 mg/dL (7.8-10.44); Carbon Dioxide 35 mmol/L (23-31); Chloride 101 mmol/L (98-107); Estimated GFR-MDRD Greater than 90; Glucose 97 mg/dL (83-110); Potassium 3.5 mmol/L (3.5-5.1); Sodium 144 mmol/L (136-145)
[2018-04-13] MEDS: Enoxaparin Sodium 40 MG/0.4 ML SYRINGE SC SCH (08:16)
[2018-04-13] MEDS: metFORMIN 500 MG TAB PO SCH ×2 (08:16→17:04)
[2018-04-13] MEDS: Amlodipine 10 MG TAB PO SCH (08:16)
[2018-04-13] MEDS: Cefepime 1 GM in Sodium Chloride 0.9% 100 ML IVPB SCH (08:16)
[2018-04-13] MEDS: Docusate 100 MG CAP PO SCH ×2 (08:17→20:51)
[2018-04-13] MEDS: Carvedilol 6.25 MG TAB PO SCH ×2 (08:17→20:51)
[2018-04-13] MEDS: Famotidine 20 MG TAB PER TUBE SCH ×2 (08:18→20:51)
--- NOTE | 2018-04-13 16:11 | PDOC.PN ---
- Subjective Encounter Start Date: 04/13/18 Encounter Start Time: 16:10 Subjective: f/u for bilat CAP with effusion on current Cefepime/Levaquin s/p extubation -: on 4L/min NC. - Objective Resuscitation Status - Order Detail: 04/05/18 22:16 Resuscitation Status Routine Resuscitation Status: FULL: Full Resuscitation MAR Reviewed: Yes Vital Signs & Weight: Vital Signs (12 hours) Temp Pulse Resp BP BP Pulse Ox Pulse Ox 04/13/18 13:42 91 L 04/13/18 12:56 99.1 F 93 18 143/80 H 94 L 04/13/18 09:33 138/78 04/13/18 09:00 94 L 04/13/18 08:30 99.0 F 93 20 138/78 94 L 04/13/18 08:17 138/78 04/13/18 08:16 93 138/78 Pulse Ox 04/13/18 13:42 96 04/13/18 12:56 04/13/18 09:33 04/13/18 09:00 04/13/18 08:30 04/13/18 08:17 04/13/18 08:16 Weight Admit Weight 271 lb Weight 281 lb 3.687 oz Most Recent Monitor Data Heart Rate from ECG 83 NIBP 123/59 NIBP BP-Mean 80 Respiration from ECG 23 SpO2 96 I&O: 04/12/18 04/13/18 04/14/18 06:59 06:59 06:59 Intake Total 802 1067 Output Total 4370 1590 Balance -0175 -703 Result Diagrams: 04/13/18 05:53 04/13/18 05:53 Additional Labs: Accuchecks 04/13/18 04/12/18 11:14 22:41 POC Glucose 103 93 Microbiology 04/06/18 08:35 Tracheal - Aspirate Respiratory Culture - Final 04/06/18 01:00 Nasopharyngeal swab Influenza Types A & B (NESTOR) - Final 04/06/18 01:00 Nasopharyngeal swab Respiratory Virus Panel (PCR) - Final 04/05/18 19:28 Venous blood - Left Hand Blood Culture - Final NO GROWTH IN 5 DAYS 04/05/18 19:15 Venous blood - Right Arm Blood Culture - Final NO GROWTH IN 5 DAYS Phys Exam - Physical Examination Constitutional: NAD HEENT: PERRLA, sclera anicteric, oral pharynx no lesions Neck: no nodes, no JVD, supple, full ROM coarse sounds bibasilar segments Respiratory: no wheezing S1, S2 Cardiovascular: RRR, no significant murmur, no rub, gallop Gastrointestinal: soft, non-tender, no distention, positive bowel sounds Musculoskeletal: no edema, pulses present Neurological: normal sensation, moves all 4 limbs Psychiatric: A&O x 3 Skin: normal turgor, cap refill <2 seconds Dx/Plan (1) Acute respiratory failure Code(s): J96.00 - ACUTE RESPIRATORY FAILURE, UNSP W HYPOXIA OR HYPERCAPNIA Status: Acute Qualifiers: Respiratory failure complication: hypoxia and hypercapnia Qualified Code(s) : J96.01 - Acute respiratory failure with hypoxia; J96.02 - Acute respiratory failure with hypercapnia Comment: Requiring intubation. CT chest showing left lower lung consolidation vs. collapse with pleural effusion. S/P Bronch as aspiration of large amount of pus. Cx from the aspirate showing only normal resp maude. Continue abx Cefepime and levaquin. Successful extubation 04/11. Continue Cefepime/Levaquin, pulmonary support (2) Community acquired bacterial pneumonia Code(s): J15.9 - UNSPECIFIED BACTERIAL PNEUMONIA Status: Acute Comment: IV antibiotics, Left Lower Lung consolidation, no identified organism, suspected gm + cocci (3) Hypertension Code(s): I10 - ESSENTIAL (PRIMARY) HYPERTENSION Status: Acute Qualifiers: Hypertension type: essential hypertension Qualified Code(s): I10 - Essential (primary) hypertension Comment: trend BP and meds as required (4) Physical deconditioning Code(s): R53.81 - OTHER MALAISE Status: Acute Comment: Suspect multifactorial, PT for mobilization, ? HH with PT - Plan plan discussed w/ family, continue antibiotics, PT/OT, social work professor, respiratory therapy, out of bed/ambulate Stable currently -: Continue Cefepime/Levaquin -: Add Mucinex 600mg BID -: OOB with PT -: AM lab: BMP, CBC * .
--- NOTE | 2018-04-13 18:03 | PRG ---
DATE OF SERVICE: 04/13/2018 SERVICE: Pulmonary Medicine. INTERVAL HISTORY: The patient is doing really well from respiratory standpoint. She is breathing comfortably. She continues to have a cough. She is bringing up a little bit of sputum. She denies any fevers or chills. There were no significant overnight events and she indicates that she is breathing fairly comfortably at this point. OBJECTIVE: VITAL SIGNS: Afebrile with a T-max of 99.8, pulse 93, blood pressure 143/80, respirations 18, and saturation 94% on 4 L nasal cannula. GENERAL: The patient is awake and alert, in no apparent distress. LUNGS: Decent air entry. Crackles are present. No significant rhonchi or wheezing is appreciated. HEART: Normal rate and regular. ABDOMEN: Soft, nontender, and nondistended. Bowel sounds are positive. MUSCULOSKELETAL: No cyanosis or clubbing. No pitting in the bilateral lower extremities. NEUROLOGIC: Grossly nonfocal. LABORATORY DATA: WBC 8.0, hemoglobin 13.5, and platelets 313,000. Basic metabolic profile is essentially unremarkable. ASSESSMENT: 1. Acute hypoxic respiratory failure, resolving. 2. Community-acquired pneumonia. 3. Metabolic encephalopathy, resolved. 4. History of breast cancer. DISCUSSION AND PLAN: We will continue the focusing on mobilization efforts through time. She has completed a 7-day course of antibiotics and these can be discontinued. From a purely respiratory standpoint, she is stable for transition out of the hospital, though she may be best served to recover in a facility where she can get aggressive physical therapy. Pulmonary will continue to follow for now. Job ID: [id number]
[2018-04-13] MEDS: Simvastatin 5 MG TAB PO SCH (20:51)
[2018-04-13] MEDS: guaiFENesin ER 600 MG TAB PO SCH (20:51)
[2018-04-13] MEDS: Aspirin 81 mg Enteric Coated Tablet PO SCH (20:51)
[2018-04-13] MEDS: Anastrozole 1 MG TAB PO SCH (20:57)
[2018-04-14] MEDS: Metoclopramide HCl 10 MG/2 ML VIAL IVP SCH ×3 (05:13→23:00)
[2018-04-14 07:25] LABS: Anion Gap 12 mmol/L (10-20); BUN (Urea Nitrogen) 6 mg/dL (9.8-20.1); Calc. Creatinine Clearance 171 mL/min (70-130); Calcium 9.8 mg/dL (7.8-10.44); Carbon Dioxide 37 mmol/L (23-31); Chloride 101 mmol/L (98-107); Estimated GFR-MDRD Greater than 90; Glucose 131 mg/dL (83-110); Potassium 3.6 mmol/L (3.5-5.1); Sodium 146 mmol/L (136-145)
[2018-04-14] MEDS: Carvedilol 6.25 MG TAB PO SCH ×2 (07:37→20:46)
[2018-04-14] MEDS: metFORMIN 500 MG TAB PO SCH ×2 (07:37→17:17)
[2018-04-14] MEDS: Amlodipine 10 MG TAB PO SCH (07:37)
[2018-04-14] MEDS: guaiFENesin ER 600 MG TAB PO SCH ×2 (07:37→20:48)
[2018-04-14] MEDS: Famotidine 20 MG TAB PER TUBE SCH ×2 (07:37→20:48)
[2018-04-14] MEDS: Enoxaparin Sodium 40 MG/0.4 ML SYRINGE SC SCH (07:38)
[2018-04-14] MEDS: Docusate 100 MG CAP PO SCH ×2 (07:38→20:48)
[2018-04-14 07:46] LABS: Eosinophils 2 % (0-10); Hemoglobin 13.8 g/dL (12.0-16.0); Lymphocytes 13 % (21-51); MDiff Complete? YES; Mean Corpuscular HGB CONC 30.1 g/dL (32.0-36.0); Mean Corpuscular Hemoglobin 30.2 pg (27.0-31.0); Mean Platelet Volume 7.2 fL (7.4-10.4); Monocytes 7 % (0-10); Neutrophil 73 % (42-75); PLT Morphology Comment Appears Adequate; Platelet Count 294 thou/uL (130-400); RBC Distribution Width 14.6 % (11.5-14.5); Reactive Lymphocytes 5 % (0-10); Red Blood Cell (RBC) Count 4.56 mill/uL (4.20-5.40); White Blood Cell (WBC) Count 6.6 thou/uL (4.8-10.8)
--- NOTE | 2018-04-14 11:56 | PDOC.PN ---
- Subjective Encounter Start Date: 04/14/18 Encounter Start Time: 11:50 Subjective: f/u for PNA with completion of abx therapy. Still weak and has not -: ambulated with PT today. Appetite slow to improve. - Objective Resuscitation Status - Order Detail: 04/05/18 22:16 Resuscitation Status Routine Resuscitation Status: FULL: Full Resuscitation MAR Reviewed: Yes Vital Signs & Weight: Vital Signs (12 hours) Temp Pulse Resp BP BP Pulse Ox 04/14/18 11:09 99.1 F 84 20 116/72 93 L 04/14/18 08:00 93 L 04/14/18 07:37 84 142/75 H 04/14/18 07:36 142/78 H 04/14/18 07:17 99.2 F 84 24 H 142/75 H 93 L 04/14/18 07:09 89 16 96 04/14/18 05:08 98.4 F 89 18 133/73 96 Weight Admit Weight 271 lb Weight 283 lb 8 oz Most Recent Monitor Data Heart Rate from ECG 83 NIBP 123/59 NIBP BP-Mean 80 Respiration from ECG 23 SpO2 96 I&O: 04/13/18 04/14/18 04/15/18 06:59 06:59 06:59 Intake Total 1067 1800 Output Total 1590 Balance -523 1800 Result Diagrams: 04/14/18 06:49 04/14/18 06:49 Additional Labs: Accuchecks 04/14/18 04/13/18 04/13/18 05:13 21:40 20:49 POC Glucose 78 88 68 L 04/13/18 04/13/18 04/13/18 16:06 11:14 04:10 POC Glucose 89 103 79 Microbiology 04/06/18 08:35 Tracheal - Aspirate Respiratory Culture - Final 04/06/18 01:00 Nasopharyngeal swab Influenza Types A & B (NESTOR) - Final 04/06/18 01:00 Nasopharyngeal swab Respiratory Virus Panel (PCR) - Final 04/05/18 19:28 Venous blood - Left Hand Blood Culture - Final NO GROWTH IN 5 DAYS 04/05/18 19:15 Venous blood - Right Arm Blood Culture - Final NO GROWTH IN 5 DAYS Phys Exam - Physical Examination Constitutional: NAD HEENT: PERRLA, sclera anicteric, oral pharynx no lesions Neck: no nodes, no JVD, supple, full ROM few scattered coarse sounds S1, S2 Cardiovascular: RRR, no significant murmur, no rub, gallop Gastrointestinal: soft, non-tender, no distention, positive bowel sounds Musculoskeletal: no edema, pulses present Neurological: normal sensation, moves all 4 limbs Psychiatric: A&O x 3 Skin: normal turgor, cap refill <2 seconds Dx/Plan (1) Acute respiratory failure Code(s): J96.00 - ACUTE RESPIRATORY FAILURE, UNSP W HYPOXIA OR HYPERCAPNIA Status: Acute Qualifiers: Respiratory failure complication: hypoxia and hypercapnia Qualified Code(s) : J96.01 - Acute respiratory failure with hypoxia; J96.02 - Acute respiratory failure with hypercapnia Comment: Requiring intubation. CT chest showing left lower lung consolidation vs. collapse with pleural effusion. S/P Bronch as aspiration of large amount of pus. Cx from the aspirate showing only normal resp maude. Successful extubation 04/11. Abx d/c'd (2) Community acquired bacterial pneumonia Code(s): J15.9 - UNSPECIFIED BACTERIAL PNEUMONIA Status: Acute Comment: Left Lower Lung consolidation, no identified organism, suspected gm+ cocci (3) Hypertension Code(s): I10 - ESSENTIAL (PRIMARY) HYPERTENSION Status: Acute Qualifiers: Hypertension type: essential hypertension Qualified Code(s): I10 - Essential (primary) hypertension Comment: trend BP and meds as required (4) Physical deconditioning Code(s): R53.81 - OTHER MALAISE Status: Acute Comment: Suspect multifactorial, PT for mobilization, ? HH with PT - Plan plan discussed w/ family, PT/OT, social science teacher, respiratory therapy, out of bed/ambulate, DVT proph w/SCDs Stable currently -: OOB/PT for mobilization -: ? HH with PT vs Inpt Rehab -: Continue Mucinex 600mg BID -: Likely d/c home in 24h * .
--- NOTE | 2018-04-14 15:27 | PRG ---
DATE OF SERVICE: 04/14/2018 SUBJECTIVE: The patient seems to be doing okay. Did not have any complaints. OBJECTIVE: VITAL SIGNS: Temperature 99.1, pulse 81, respirations 20, O2 saturation 92% on 3 L, blood pressure 116/72. HEENT: Unremarkable. NECK: No JVD. LUNGS: Clear. CARDIAC: S1 and S2 regular. ABDOMEN: Soft. EXTREMITIES: No edema. LABORATORY DATA: White blood cell count 6.6, hematocrit 45.7, and platelet count 294. Sodium 146, potassium 3.6, BUN 6, creatinine 0.5, glucose 131. ASSESSMENT: 1. Pneumonia. 2. Improved encephalopathy. PLAN: She seems to be getting better on the current treatment. Her antibiotics were stopped today since she has had 7 days of treatment. Her main needs at this time are rehabilitative in nature. Job ID: [id number]
[2018-04-14] MEDS: Simvastatin 5 MG TAB PO SCH (20:47)
[2018-04-14] MEDS: Aspirin 81 mg Enteric Coated Tablet PO SCH (20:48)
[2018-04-14] MEDS: Anastrozole 1 MG TAB PO SCH (20:48)
[2018-04-15] MEDS: Metoclopramide HCl 10 MG/2 ML VIAL IVP SCH ×3 (06:53→20:56)
[2018-04-15] MEDS: guaiFENesin ER 600 MG TAB PO SCH ×2 (09:56→20:55)
[2018-04-15] MEDS: metFORMIN 500 MG TAB PO SCH ×2 (09:56→18:07)
[2018-04-15] MEDS: Docusate 100 MG CAP PO SCH ×2 (09:56→20:44)
[2018-04-15] MEDS: Carvedilol 6.25 MG TAB PO SCH ×2 (09:57→20:44)
[2018-04-15] MEDS: Famotidine 20 MG TAB PER TUBE SCH ×2 (09:57→20:44)
[2018-04-15] MEDS: Amlodipine 10 MG TAB PO SCH (09:57)
[2018-04-15] MEDS: Enoxaparin Sodium 40 MG/0.4 ML SYRINGE SC SCH (09:57)
[2018-04-15 10:32] LABS: #Eosinphils 0.2 thou/uL (0.0-0.7); #Lymphocytes 1.1 thou/uL (1.20-3.40); #Monocytes 0.7 thou/uL (0.11-0.59); #Neutrophils 3.3 thou/uL (1.40-6.50); %Basophils 0.9 % (0.0-1.0); %Eosinophils 3.4 % (0.0-10.0); %Lymphocytes 20.1 % (21.0-51.0); %Monocytes 13.8 % (0.0-10.0); %Neutrophils 61.8 % (42.0-75.0); Hemoglobin 14.3 g/dL (12.0-16.0); Mean Corpuscular HGB CONC 30.5 g/dL (32.0-36.0); Mean Corpuscular Hemoglobin 30.6 pg (27.0-31.0); Mean Platelet Volume 7.9 fL (7.4-10.4); Platelet Count 294 thou/uL (130-400); RBC Distribution Width 14.4 % (11.5-14.5); Red Blood Cell (RBC) Count 4.66 mill/uL (4.20-5.40); White Blood Cell (WBC) Count 5.3 thou/uL (4.8-10.8)
--- NOTE | 2018-04-15 10:36 | PDOC.PN ---
- Subjective Encounter Start Date: 04/15/18 Encounter Start Time: 10:25 Subjective: f/u for PNA with completion of abx therapy. Still weak overall. - Objective Resuscitation Status - Order Detail: 04/05/18 22:16 Resuscitation Status Routine Resuscitation Status: FULL: Full Resuscitation MAR Reviewed: Yes Vital Signs & Weight: Vital Signs (12 hours) Temp Pulse Resp BP BP Pulse Ox 04/15/18 09:57 82 144/81 H 04/15/18 09:56 144/84 H 04/15/18 08:50 98.2 F 82 18 144/81 H 93 L 04/15/18 08:00 93 L 04/15/18 07:51 98 20 91 L 04/15/18 00:51 87 16 95 04/15/18 00:00 98.8 F 87 20 122/65 92 L 04/14/18 23:57 99.2 F 89 20 133/80 100 Weight Admit Weight 271 lb Weight 283 lb 8 oz Most Recent Monitor Data Heart Rate from ECG 83 NIBP 123/59 NIBP BP-Mean 80 Respiration from ECG 23 SpO2 96 I&O: 04/14/18 04/15/18 04/16/18 06:59 06:59 06:59 Intake Total 1800 Balance 1800 Result Diagrams: 04/15/18 10:02 04/14/18 06:49 Additional Labs: Accuchecks 04/15/18 04/14/18 04/14/18 04:24 19:10 16:45 POC Glucose 95 108 102 04/14/18 11:16 POC Glucose 95 Microbiology 04/06/18 08:35 Tracheal - Aspirate Respiratory Culture - Final 04/06/18 01:00 Nasopharyngeal swab Influenza Types A & B (NESTOR) - Final 04/06/18 01:00 Nasopharyngeal swab Respiratory Virus Panel (PCR) - Final 04/05/18 19:28 Venous blood - Left Hand Blood Culture - Final NO GROWTH IN 5 DAYS 04/05/18 19:15 Venous blood - Right Arm Blood Culture - Final NO GROWTH IN 5 DAYS Phys Exam - Physical Examination Constitutional: NAD HEENT: PERRLA, sclera anicteric, oral pharynx no lesions Neck: no nodes, no JVD, supple, full ROM few scattered coarse sounds Respiratory: no wheezing S1, S2 Cardiovascular: RRR, no significant murmur, no rub, gallop Gastrointestinal: soft, non-tender, no distention, positive bowel sounds Musculoskeletal: no edema, pulses present Neurological: normal sensation, moves all 4 limbs Skin: normal turgor, cap refill <2 seconds Dx/Plan (1) Acute respiratory failure Code(s): J96.00 - ACUTE RESPIRATORY FAILURE, UNSP W HYPOXIA OR HYPERCAPNIA Status: Acute Qualifiers: Respiratory failure complication: hypoxia and hypercapnia Qualified Code(s) : J96.01 - Acute respiratory failure with hypoxia; J96.02 - Acute respiratory failure with hypercapnia Comment: Requiring intubation. CT chest showing left lower lung consolidation vs. collapse with pleural effusion. S/P Bronch as aspiration of large amount of pus. Cx from the aspirate showing only normal resp maude. Successful extubation 04/11. Abx d/c'd, wean O2 support as clinically indicated, may need short term home O2 (2) Community acquired bacterial pneumonia Code(s): J15.9 - UNSPECIFIED BACTERIAL PNEUMONIA Status: Acute Comment: Left Lower Lung consolidation, no identified organism, suspected gm+ cocci (3) Hypertension Code(s): I10 - ESSENTIAL (PRIMARY) HYPERTENSION Status: Acute Qualifiers: Hypertension type: essential hypertension Qualified Code(s): I10 - Essential (primary) hypertension Comment: trend BP and meds as required (4) Physical deconditioning Code(s): R53.81 - OTHER MALAISE Status: Acute Comment: Suspect multifactorial, PT for mobilization, due to deconditioning and weakness supervised rehab/swing bed may be more appropriate - Plan PT/OT, social media intern, respiratory therapy, out of bed/ambulate, DVT proph w/ SCDs Stable currently -: OOB/ambulate with PT -: Continue pulmonary support with Duonebs, Mucinex -: CM assisting with SNF/swing bed options -: Likely can d/c in 24h * .
[2018-04-15 10:49] LABS: Anion Gap 14 mmol/L (10-20); BUN (Urea Nitrogen) 5 mg/dL (9.8-20.1); Calc. Creatinine Clearance 174 mL/min (70-130); Carbon Dioxide 36 mmol/L (23-31); Chloride 98 mmol/L (98-107); Estimated GFR-MDRD Greater than 90; Glucose 108 mg/dL (83-110); Potassium 3.8 mmol/L (3.5-5.1); Sodium 144 mmol/L (136-145)
--- NOTE | 2018-04-15 12:57 | PRG ---
DATE OF SERVICE: 04/15/2018 SUBJECTIVE: She was extubated, doing well. OBJECTIVE: VITAL SIGNS: Blood pressure 148/81, temperature 98, and saturations 92% on 3L, respirations 18. CHEST: Decreased breath sounds. No wheezing. CARDIAC: Normal S1 and S2. No gallops. ABDOMEN: No masses. LABORATORY DATA: All cultures are negative. White count 5000. Lytes are normal. Renal function back to normal. Last chest x-ray shows left-sided infiltrate, improved. IMPRESSION: 1. Respiratory failure, left lung atelectasis. 2. Severe deconditioning. 3. Probable sleep apnea. PLAN: Continue aggressive PT and supportive care, eventually placement. We will follow. Job ID: [id number]
--- NOTE | 2018-04-15 15:05 | RAD ---
AP AND LATERAL CHEST XRAY: DATE: 04/15/2018. HISTORY: Pneumonia. COMPARISON: 04/11/2018. FINDINGS: Postsurgical changes related to median sternotomy are noted. Cardiac silhouette is magnified by proj ection. There is mild increase in pulmonary vascular congestion. A small moderate-sized left pleura l effusion and atelectasis is noted. A tiny right pleural effusion is present. Degenerative changes are noted in the spine. Vascular calcifications are seen in the thoracic aorta. IMPRESSION: 1. Small to moderate left and tiny right pleural effusions. 2. The airspace opacities at the right lung base noted on the study of 04/11/2018 have improved with better aeration at the right lung base. 3. Endotracheal tube and nasogastric tubes have been removed. 4. Mild prominence of the pulmonary vasculature. POS: KEVIN
[2018-04-15] MEDS: Aspirin 81 mg Enteric Coated Tablet PO SCH (20:44)
[2018-04-15] MEDS: Doxycycline 100 MG CAP PO SCH (20:45)
[2018-04-15] MEDS: Simvastatin 5 MG TAB PO SCH (20:55)
[2018-04-15] MEDS: Anastrozole 1 MG TAB PO SCH (20:56)
[2018-04-16] MEDS: Metoclopramide HCl 10 MG/2 ML VIAL IVP SCH (05:55)
--- NOTE | 2018-04-16 09:29 | PRG ---
DATE OF SERVICE: 04/16/2018 SUBJECTIVE: Katie Varma is a 78-year-old female, who is somewhat better. OBJECTIVE: VITAL SIGNS: Her sats are 95% on 4 L, respirations 20, temperature 98, pulse 92, blood pressure . CHEST: Decreased breath sounds. Bilateral rhonchi. CARDIAC: Normal S1 and S2. No gallops. ABDOMEN: Soft. No masses. LABORATORY DATA: Bicarb is 36. White count 5000. Her lytes are normal. Chest x-ray shows a left-sided infiltrate, persistent but better. IMPRESSION: 1. Left lung atelectasis with pus. 2. History of breast cancer, diabetes, severe deconditioning, probably sleep apnea. PLAN: The patient needs to continue aggressive PT, supportive care, antibiotics. Job ID: [id number]
[2018-04-16] MEDS: Carvedilol 6.25 MG TAB PO SCH ×2 (09:46→20:36)
[2018-04-16] MEDS: Doxycycline 100 MG CAP PO SCH ×2 (09:46→20:37)
[2018-04-16] MEDS: Famotidine 20 MG TAB PER TUBE SCH ×2 (09:46→20:37)
[2018-04-16] MEDS: Amlodipine 10 MG TAB PO SCH (09:47)
[2018-04-16] MEDS: guaiFENesin ER 600 MG TAB PO SCH ×2 (09:47→20:36)
[2018-04-16] MEDS: Docusate 100 MG CAP PO SCH ×2 (09:48→20:37)
[2018-04-16] MEDS: Enoxaparin Sodium 40 MG/0.4 ML SYRINGE SC SCH (09:48)
[2018-04-16] MEDS: metFORMIN 500 MG TAB PO SCH ×2 (09:49→16:37)
--- NOTE | 2018-04-16 12:50 | PDOC.PN ---
- Subjective Encounter Start Date: 04/16/18 Encounter Start Time: 12:30 Subjective: f/u for PNA, hypoxic resp failure and slow clinical improvement. Nsg -: noted low saturations this am requiring increased O2 supplementation. - Objective Resuscitation Status - Order Detail: 04/05/18 22:16 Resuscitation Status Routine Resuscitation Status: FULL: Full Resuscitation MAR Reviewed: Yes Vital Signs & Weight: Vital Signs (12 hours) Temp Pulse Resp BP BP BP Pulse Ox 04/16/18 10:01 04/16/18 09:47 92 165/94 H 04/16/18 09:46 165/84 H 04/16/18 09:45 164/84 H 04/16/18 08:00 92 L 04/16/18 07:28 98.6 F 92 20 162/82 H 90 L 04/16/18 06:53 81 16 97 04/16/18 04:00 98.3 F 81 18 144/79 H 97 04/16/18 00:54 84 16 95 Pulse Ox Pulse Ox 04/16/18 10:01 85 L 95 04/16/18 09:47 04/16/18 09:46 04/16/18 09:45 04/16/18 08:00 04/16/18 07:28 04/16/18 06:53 04/16/18 04:00 04/16/18 00:54 Weight Admit Weight 271 lb Weight 285 lb 8.754 oz Most Recent Monitor Data Heart Rate from ECG 83 NIBP 123/59 NIBP BP-Mean 80 Respiration from ECG 23 SpO2 96 Result Diagrams: 04/15/18 10:02 04/15/18 10:02 Additional Labs: Accuchecks 04/16/18 04/15/18 04/15/18 03:34 19:42 16:12 POC Glucose 87 87 95 Microbiology 04/06/18 08:35 Tracheal - Aspirate Respiratory Culture - Final 04/06/18 01:00 Nasopharyngeal swab Influenza Types A & B (NESTOR) - Final 04/06/18 01:00 Nasopharyngeal swab Respiratory Virus Panel (PCR) - Final 04/05/18 19:28 Venous blood - Left Hand Blood Culture - Final NO GROWTH IN 5 DAYS 04/05/18 19:15 Venous blood - Right Arm Blood Culture - Final NO GROWTH IN 5 DAYS Radiology Reviewed by me: Yes (PCXR - mild-mod L pleural effusion) Phys Exam - Physical Examination Constitutional: NAD responsive to questions HEENT: PERRLA, sclera anicteric, oral pharynx no lesions Neck: no nodes, no JVD, supple, full ROM diminished in bases Respiratory: no wheezing S1, S2 Cardiovascular: RRR, no significant murmur, no rub, gallop Gastrointestinal: soft, non-tender, no distention, positive bowel sounds Musculoskeletal: no edema, pulses present Neurological: normal sensation, moves all 4 limbs Psychiatric: A&O x 3 Skin: normal turgor, cap refill <2 seconds Dx/Plan (1) Acute respiratory failure Code(s): J96.00 - ACUTE RESPIRATORY FAILURE, UNSP W HYPOXIA OR HYPERCAPNIA Status: Acute Qualifiers: Respiratory failure complication: hypoxia and hypercapnia Qualified Code(s) : J96.01 - Acute respiratory failure with hypoxia; J96.02 - Acute respiratory failure with hypercapnia Comment: Requiring intubation. CT chest showing left lower lung consolidation vs. collapse with pleural effusion. S/P Bronch as aspiration of large amount of pus. Cx from the aspirate showing only normal resp maude. Successful extubation 04/11. Abx d/c'd, wean O2 support as clinically indicated, may need short term home O2 (2) Community acquired bacterial pneumonia Code(s): J15.9 - UNSPECIFIED BACTERIAL PNEUMONIA Status: Acute Comment: Left Lower Lung consolidation, no identified organism, suspected gm+ cocci, Doxycycline and Duonebs (3) Hypertension Code(s): I10 - ESSENTIAL (PRIMARY) HYPERTENSION Status: Acute Qualifiers: Hypertension type: essential hypertension Qualified Code(s): I10 - Essential (primary) hypertension Comment: trend BP and meds as required (4) Physical deconditioning Code(s): R53.81 - OTHER MALAISE Status: Acute Comment: Suspect multifactorial, PT for mobilization, due to deconditioning and weakness supervised rehab/swing bed may be more appropriate - Plan plan discussed w/ family, continue antibiotics, PT/OT, hospital social worker, respiratory therapy, out of bed/ambulate Stable currently -: Continue Doxycycline -: Continue Duonebs, Dulera -: OOB with PT -: CM for SNF/swing bed options * .
[2018-04-16 15:34] VITALS: BMI 44.7
[2018-04-16] MEDS: Mometasone/Formoterol 120 PUFF INHALER INH SCH (20:10)
[2018-04-16] MEDS: Aspirin 81 mg Enteric Coated Tablet PO SCH (20:36)
[2018-04-16] MEDS: Anastrozole 1 MG TAB PO SCH (20:37)
[2018-04-16] MEDS: Simvastatin 5 MG TAB PO SCH (20:37)
[2018-04-17] MEDS: Mometasone/Formoterol 120 PUFF INHALER INH SCH (07:23)
[2018-04-17] MEDS: guaiFENesin ER 600 MG TAB PO SCH (08:29)
[2018-04-17] MEDS: Amlodipine 10 MG TAB PO SCH (08:29)
[2018-04-17] MEDS: Docusate 100 MG CAP PO SCH (08:29)
[2018-04-17] MEDS: Carvedilol 6.25 MG TAB PO SCH (08:29)
[2018-04-17] MEDS: metFORMIN 500 MG TAB PO SCH (08:29)
[2018-04-17] MEDS: Doxycycline 100 MG CAP PO SCH (08:29)
[2018-04-17] MEDS: Enoxaparin Sodium 40 MG/0.4 ML SYRINGE SC SCH (08:30)
[2018-04-17] MEDS: Famotidine 20 MG TAB PER TUBE SCH (08:30)
--- NOTE | 2018-04-17 09:03 | PRG ---
DATE OF SERVICE: 04/17/2018 SUBJECTIVE: This morning, she is having difficulty breathing. OBJECTIVE: VITAL SIGNS: Sats are 92% on 3 L, pulse 78, respiratory rate 18, and blood pressure 140/74. CHEST: Decreased breath sounds. Rhonchi. CARDIAC: Normal S1 and S2. No gallops. ABDOMEN: No masses. IMPRESSION: 1. Left lung atelectasis and pneumonia. 2. Severe deconditioning. 3. Baseline underlying severe chronic obstructive pulmonary disease. 4. Morbid obesity, probably sleep apnea. PLAN: She needs to go to a rehab. She could recuperate. Her long-term prognosis is really pretty poor. It is unclear whether understands underlying issues. Continue antibiotics. Continue steroids. Job ID: [id number]
[2018-04-17] MEDS ORDERED: Furosemide 20 MG/2 ML VIAL SLOW IVP SCH (10:00)
[2018-04-17 11:24] VITALS: TEMP 98.4
[2018-04-17 11:27] VITALS: BP 140/74
--- NOTE | 2018-04-17 12:42 | DIS ---
DATE OF ADMISSION: 04/05/2018 DATE OF DISCHARGE: 04/17/2018 DISCHARGE DIAGNOSES: 1. Acute hypoxemic hypercapnic respiratory failure requiring intubation secondary to community-acquired bacterial pneumonia, improved. 2. Community-acquired bacterial pneumonia, suspected gram-positive cocci, left-sided predominance. 3. Hypertension, stable. 4. Physical deconditioning. CONSULTATIONS: Dr. Dubois and Dr. Martin with Pulmonology/Critical care Service. PERTINENT LABORATORY AND X-RAY FINDINGS: Carbon dioxide level ranged between 30 to 37. Lactic acid level 0.9. Magnesium level 2.3. Troponin I less than 0.010. CBC showed a white blood cell count ranging between 5.3 to 11.0. Blood cultures x2 dated 04/05/2018, showed no growth at 5 days. Influenza A and B antigen dated 04/06/2018, negative. Tracheal aspirate dated 04/06/2018, showed no organisms and few normal respiratory maude. Portable chest x-ray dated 04/05/2018, showed improved aeration of the left lung field. Persistent bibasilar lung changes secondary to atelectasis. Endotracheal tube in satisfactory position. CT angiogram of the chest dated 04/05/2018 showed no evidence for pulmonary embolus. Opacification related to consolidation/collapse of the left upper and lower lung gonzalez. Portable chest x-ray dated 04/15/2018, showed small to moderate left and small right pleural effusion. Airspace opacities of the right lung base with improvement since prior exam on 04/11/2018. Prominence of the pulmonary vasculature. HOSPITAL COURSE: The patient was initially admitted to the Critical Care Unit after presenting with increased shortness of breath and acute respiratory failure requiring intubation. The patient underwent chest imaging showing opacification of the left lung field and concern for infectious process. The patient was intubated and placed on broad-spectrum antibiotic therapy to include Levaquin and cefepime. The patient was evaluated by the Pulmonology/Critical Care Service and managed on mechanical ventilation. The patient did have improvement in aeration of the lung gonzalez and underwent subsequent bronchoscopy with tracheal aspirate showing no evidence of specific organism on respiratory culture. The patient continued on broad-spectrum antibiotic therapy and subsequently extubating without complication. The patient remained on oxygen supplementation at 3 to 4 L/minute by nasal cannula through the remainder of the hospital course. The patient was noted with 2 episodes of hypoxia requiring increased oxygen supplementation up to 5 L/minute with rapid return to baseline oxygen requirement at 3 L/minute with DuoNeb therapy. Due to the patient's overall comorbid status and prolonged hospital stay, the patient was noted with severe deconditioning and limited mobility. The patient was deemed an appropriate candidate for ongoing skilled care and will transition to supervised medical care at [facility] after discharge. I have examined the patient at the time of discharge and discussed followup instructions. The patient ready for discharge on 04/17/2018. DISCHARGE MEDICATIONS: 1. Amlodipine 10 mg 1 tab p.o. daily. 2. Enteric-coated aspirin 81 mg p.o. daily. 3. Calcium carbonate 1 tablet p.o. daily. 4. Coreg 12.5 mg p.o. b.i.d. 5. Vitamin D3 of 2000 units p.o. daily. 6. Lovastatin 10 mg p.o. at bedtime. 7. Metformin 500 mg p.o. b.i.d. 8. [place]-3 fatty acids 1 capsule p.o. daily. 9. Accupril 20 mg p.o. b.i.d. 10. Doxycycline 100 mg p.o. b.i.d. until 04/24/2018. 11. Lovenox 40 mg subcutaneously daily. 12. Mucinex ER 600 mg p.o. b.i.d. 13. DuoNeb 3 mL nebulized q.4 hours p.r.n. 14. Dulera 200/5 mcg 2 puffs inhaled b.i.d. 15. Prednisone 10 mg p.o. q.a.m. FOLLOWUP: The patient may follow up with her primary care provider, Dr. Mily Carlson after discharge from [facility]. The patient will follow up with Dr. Dubois with Pulmonology Service and to call his office for appointment, time, and date. CONDITION ON DISCHARGE: Stable. ACTIVITY: Ad tin, rolling walker with standby/contact guard assistance with general fall risk precautions. DIET: Heart healthy. CODE STATUS: Full. DISPOSITION: Discharged to [facility] on 04/17/2018. TIME SPENT: Total time preparing and coordinating discharge is 36 minutes. Job ID: [id number]
[2018-04-18] MEDS ORDERED: predniSONE 5 MG TAB PO SCH (08:00)
== END 2018-04-17 14:09 | disposition swing bed (61) | DRG 207 ==
LOC: ERS 20:22 → CCU 22:23 → T4-B 04-12 14:33
PROVIDERS: ADMIT Internal Medicine; ATTEND Internal Medicine
PROC: 5A1955Z Respiratory Ventilation, Greater than 96 Consecutive Hours (ICD-10-PCS; principal; 2018-04-05)
PROC: 0BH17EZ Insertion of Endotracheal Airway into Trachea, Via Natural or Artificial Opening (ICD-10-PCS; 2018-04-05)
PROC: 0BC78ZZ Extirpation of Matter from Left Main Bronchus, Via Natural or Artificial Opening Endoscopic (ICD-10-PCS; 2018-04-06)
PROC: 0B9M7ZX Drainage of Bilateral Lungs, Via Natural or Artificial Opening, Diagnostic (ICD-10-PCS; 2018-04-06)
PROC: 3E0G76Z Introduction of Nutritional Substance into Upper GI, Via Natural or Artificial Opening (ICD-10-PCS; 2018-04-07)
PROC: 0DH67UZ Insertion of Feeding Device into Stomach, Via Natural or Artificial Opening (ICD-10-PCS; 2018-04-07)
PROC: 3E1F88Z Irrigation of Respiratory Tract using Irrigating Substance, Via Natural or Artificial Opening Endoscopic (ICD-10-PCS; 2018-04-10)
DX: J15.9 Unspecified bacterial pneumonia (principal); J96.02 Acute respiratory failure with hypercapnia; J96.01 Acute respiratory failure with hypoxia; G93.41 Metabolic encephalopathy; J98.11 Atelectasis; E87.1 Hypo-osmolality and hyponatremia; Z68.41 Body mass index [BMI] 40.0-44.9, adult; E87.2 Acidosis; J90 Pleural effusion, not elsewhere classified; I10 Essential (primary) hypertension; E66.01 Morbid (severe) obesity due to excess calories; E78.00 Pure hypercholesterolemia, unspecified; Z85.3 Personal history of malignant neoplasm of breast; E11.9 Type 2 diabetes mellitus without complications; Z79.84 Long term (current) use of oral hypoglycemic drugs; E87.6 Hypokalemia; J44.9 Chronic obstructive pulmonary disease, unspecified
CPT/HCPCS: 31500; 36415; 36416; 36556; 51702; 71045; 71046; 71275; 80048; 82805; 83605; 83735; 84484; 85025; 87070; 87205; 87633; 93005; 94003; 94640; 94660; 94760; 96365; 96366; 96368; 96374; C1769; G8978-GP-CL; G8979-GP-CJ; G8987-GO-CL; G8988-GO-CI; G8996-GN-CK; G8997-GN-CI; J0692; J1650; J1940; J1956; J2250; J2704; J2765; J2920; J3010; J3480; J7050; J7620